=== PATIENT | male | born 1960 | race Caucasian/White ===

== ENCOUNTER → 2017-11-15 13:21 | Outpatient (POV) | payer BC, SELFPAY | PROVIDERS: Family Provider Internal Medicine; PCP Internal Medicine; Visit Provider Dermatology | DX: Z00.00 Encounter for general adult medical examination without abnormal findings (principal) ==

== ENCOUNTER → 2018-05-15 14:59 | Outpatient (CLI) | payer BC, SELFPAY ==
--- NOTE | 2018-05-15 15:04 | XR_ITS ---
XR chest 2V HISTORY: Congestion, fatigue, current smoker ITS.REASON: FATIGUE, CONGESTION ORDERING PHYSICIAN: Sulaiman Beach PATIENT AGE: 58 years COMPARISON: 10/19/2016 FINDINGS: Mild cardiomegaly without failure. There is calcified granuloma in the left lower lung zone. No lobar consolidation or collapse. There is some increased density in the left lung base suggestive of atelectatic/fibrotic change. The remaining lungs are clear. There are degenerative changes in the thoracic spine. IMPRESSION: Cardiomegaly with left lower lobe atelectatic/fibrotic change
== END ==
PROVIDERS: PCP Internal Medicine; Visit Provider Internal Medicine
DX: R09.89 Other specified symptoms and signs involving the circulatory and respiratory systems (principal); R53.83 Other fatigue
CPT/HCPCS: 71046

== ENCOUNTER → 2018-05-17 10:42 | Outpatient (CLI) | payer BC, SELFPAY ==
[2018-05-17 12:12] LABS: Anion Gap 16.2 mEq/L (5-15); Blood Urea Nitrogen 12 mg/dL (7-18); Calcium 8.5 mg/dL (8.5-10.1); Carbon Dioxide 27 mmol/L (21.0-32.0); Chloride 98 mmol/L (98-107); Creatinine,Serum 1.55 mg/dL (0.70-1.30); Estimated Glomerular Filt Rate 46 ml/min (>60); GFR (African American) 56 ML/MIN (>60); Glucose 161 mg/dL (74-106); Sodium 137 mmol/L (136-145)
[2018-05-17 12:15] LABS: Potassium 4.2 mmoL/L (3.5-5.1)
== END ==
PROVIDERS: Physician Assistant; Visit Provider Internal Medicine Cardiovascular Disease
DX: C92.10 Chronic myeloid leukemia, BCR/ABL-positive, not having achieved remission (principal); I31.3 Pericardial effusion (noninflammatory); R06.09 Other forms of dyspnea; R09.89 Other specified symptoms and signs involving the circulatory and respiratory systems; R60.9 Edema, unspecified; R06.00 Dyspnea, unspecified
CPT/HCPCS: 36415; 80048; 83880

== ENCOUNTER → 2018-05-21 13:33 | Outpatient (CLI) | payer BC, SELFPAY ==
--- NOTE | 2018-05-21 13:39 | CA_ITS ---
PROCEDURE: 2-D M-mode and color Doppler study INDICATIONS FOR THE TEST: Chest pain COPD+ Heart Murmur Tobacco Smoking+ Palpitations Fatigue Syncope Edema+ Hypertension+Diabetes Mellitus+ Rheumatic Fever SOB+KING+Obesity+Hyperlipidemia+ Family History HD Additional History Abn EKG, ANNIE, prior pericardial window 2016 PATIENT INFORMATION HEIGHT: 75 WEIGHT: 312 GENDER: Male B/P: 113/68 2-D/M-MODE INTERPRETATION: 2-D MEASUREMENTS OBSERVED VALUES IN CMS Right Ventricular Dimension (RVDd) 3.0 Interventricular Septum (Thickness)(IVsd) 1.0 Left Ventricular Internal Dimensions(LVIDd) 5.9 Left Ventricular Posterior Wall (Thickness)(LVPWd) 1.0 Aortic Root 3.3 Aortic Cusp Separation 2.2 Left Atrial Dimensions (LAD) 3.5 2D 1. Technically difficult study because of the patient's factor and poor acoustic windows 2. Left atrium is qualitatively moderately enlarged, left ventricle is mildly dilated, there is mild concentric left ventricular hypertrophy, visually estimated ejection fraction approximately 40-45%, there is moderate hypokinesis involving the posterolateral wall, a repeat study with definitely contrast is recommended. 3. The right atrium and right ventricle are moderately enlarged with normal contractility. 4. The aortic valve is minimally thickened and fibrosed. 5. The mitral and tricuspid valve leaflets are minimally thickened. 6. No significant pericardial effusion noted. DOPPLER INTERROGATION: Doppler interrogation of the aortic, mitral and tricuspid valvular presence of mild mitral and tricuspid regurgitation, tricuspid regurgitation jet velocity is inadequate for calculation of the right ventricular systolic pressure, grade 1 diastolic dysfunction seen with tissue Doppler evidence of raised left atrial pressure. CONCLUSION: 1. Technically difficult study because of the patient's factor and poor acoustic windows 2. Moderate biatrial enlargement, mildly dilated left ventricle, visually estimated ejection fraction of 40-45% with segmental wall motion abnormality described above, repeat study with Definity contrast is recommended for better delineation of the endocardial surfaces. Grade 1 diastolic dysfunction with tissue Doppler evidence of raised left atrial pressure. 3. Mild mitral and tricuspid regurgitation 4. No significant pericardial effusion noted.
--- NOTE | 2018-05-21 14:06 | CT_ITS ---
CT chest wo con HISTORY: Shortness of air, pleural effusion, pericardial effusion ITS.REASON: abnormal ekg, dyspnea ORDERING PHYSICIAN: Obed Bryan MD PATIENT AGE: 58 years COMPARISON: 10/02/2016 Technique: Axial images obtained without contrast. Sagittal, and coronal reformatted images are also generated and reviewed. All CT scans at the facility use one or more dose reduction, viz: automated exposure control, ma/kV adjustment per patient size (including targeted exams where dose is matched to indication, i.e. head), or iterative reconstruction technique. FINDINGS: There are few scattered small mediastinal nodes. Coronary artery calcifications are present. No mediastinal mass or hilar adenopathy is evident. There is mild thickening of the pericardium anteriorly and posteriorly. This has moderately improved compared to the previous exam. Small hiatal hernia is suspected. There are few small periportal lymph nodes in the upper abdomen. Calcified granuloma is present in the right upper lobe as before. There is a faint 5 mm nodule in the left lower lobe on axial image #55 not readily apparent on the previous study. Is nonspecific and too small to characterize. A calcified granuloma is present in the left lower lobe. There is an additional 5 mm nodular opacity in the left lower lobe on image #70.. Previously noted right pleural effusion has resolved No acute bony findings. IMPRESSION: 1. There is been interval improvement in the pericardial effusion. The previously noted right pleural effusion has resolved as well 2. There are 2 faint 5 mm nodules in the left lower lobe not previously identified. These are nonspecific. 6 month follow-up suggested. 3. Coronary artery calcifications
== END ==
PROVIDERS: PCP Internal Medicine; Visit Provider Internal Medicine Cardiovascular Disease
DX: R06.09 Other forms of dyspnea (principal); R09.89 Other specified symptoms and signs involving the circulatory and respiratory systems; R60.9 Edema, unspecified
CPT/HCPCS: 71250; 93306

== ENCOUNTER → 2018-09-13 07:58 | Outpatient (CLI) | payer BC, SELFPAY ==
--- NOTE | 2018-09-13 07:59 | CT_ITS ---
CT abdomen pelvis wo con CLINICAL INDICATION: ITS.REASON: GROSS HEMATURIA ORDERING PHYSICIAN: Sulaiman Beach PATIENT AGE: 58 years COMPARISON: 09/18/2016 TECHNIQUE: Axial images obtained with sagittal and coronal reformats. All CT scans at the facility use one or more dose reduction, viz: automated exposure control, ma/kV adjustment per patient size (including targeted exams where dose is matched to indication, i.e. head), or iterative reconstruction technique. FINDINGS: Lower thorax: There are mild atelectatic or fibrotic changes in the lingula. Minimal pericardial thickening noted. This has improved since the previous exam. Diffuse fatty liver. There is mild hepatomegaly. The anterior and lateral aspect of the mid abdomen including the most lateral aspect of the right hepatic lobe is cut off on the exam. There is mild dilatation of the celiac artery at 1.5 cm 2.6 cm distal to its origin. This is not significantly changed. The spleen, adrenal glands, and pancreas have an unremarkable unenhanced CT appearance. No renal or ureteral calculi. No hydronephrosis. There is a 13 mm isodensity in the left aspect of the kidney posteriorly and may represent a small cyst. Suspect small right parapelvic renal cysts. No intestinal obstruction or free air. Unremarkable appendix. Scattered colonic diverticula. No evidence of diverticulitis. There is a small periumbilical hernia containing fat. The prostate is enlarged at 6 x 5 cm. No pelvic mass abnormal fluid collection or focal inflammatory changes pelvis. There are degenerative changes in the lumbar spine. There is a well-circumscribed cystic area in the left femoral neck unchanged with a benign appearance. IMPRESSION: 1. No acute abdominal or pelvic findings. Nonacute findings are present as described above 2. Fatty liver with hepatomegaly. 3. No renal or ureteral calculi. 4. Enlarged prostate
== END ==
PROVIDERS: PCP Internal Medicine; Visit Provider Internal Medicine
DX: R31.0 Gross hematuria (principal)
CPT/HCPCS: 74176

== ENCOUNTER → 2020-01-27 10:14 | Outpatient (CLI) | payer BC, SELFPAY | PROVIDERS: PCP Internal Medicine; Visit Provider Internal Medicine | DX: Z03.818 Encounter for observation for suspected exposure to other biological agents ruled out (principal) | CPT/HCPCS: U0003 ==

== ENCOUNTER 2020-11-13 10:52 | Emergency (ER) | payer BC, SELFPAY ==
[2020-11-13 12:30] VITALS: BP 115/70; PULSE 64; RESP 19; TEMP 37; O2SAT 96; BMI 36.9
--- NOTE | 2020-11-13 12:57 | HMH.EDUTC ---
[facility] – [place] Disposition Clinical Impression: Exposure to COVID-19 virus Disposition: Home, Self-Care Condition on Discharge: Good Instructions: DI for COVID-19 (Suspected or Confirmed ), Preventing the Spread of Coronavirus Discharge Instructions Additional Instructions: *Monitor Temp, Over the counter Motrin or Tylenol as directed/as needed Tylenol every 4 hours and Motrin every 6 hours (as long as your family doctor has told you that you can take it) for fever or pain. and straight to ER if unable to lower temp less than 101.0 after medication given *Warm salt water gargles may help to soothe the throat *Throat Lozenges *Warm fluids like tea with honey may help to soothe the throat *Sleep elevated *Humidifier/Vaporizer Follow up IMMEDIATELY for new or worsening symptoms or no Noticeable improvement over the next 48-72 hours. 911 for difficulty breathing or swallowing You were tested for today for COVID19 your test result should be back in the next 24-48 hours, You was given written instructions for [facility] portal you can see your results there when they come back you may check it often to see if they are done You was given a handout with instructions for Self Quarantine and Self isolation for while you wait on test results and what to do if they are positive If you are positive the Health Dept will be contacting you also Make sure to take your Vitamins Vit. C Vit D and Zinc if you can take them Referrals: Sulaiman Beach [Primary Care Provider] - As needed Forms: Work/School Release Medical Decision Making - Adonis Inquiry Pt receiving controlled substance: No Adonis was queried for this patient: No Vital Signs: 11/13/20 12:30 Temperature 98.6 F Temperature Source Oral Pulse Rate [Right Brachial] 64 Respiratory Rate 19 Blood Pressure [Right Arm] 115/70 Blood Pressure Mean [Right Arm] 85 Blood Pressure Source [Right Arm] Automatic Cuff Blood Pressure Position [Right Arm] Sitting 02 Sat by Pulse Oximetry 96 Oxygen Delivery Method Room Air Orders (Tests/Meds): ORDERS Category Date Time Status Covid-19 Nasal PCR ([facility]) Routine Lab 11/13/20 12:40 Received [facility] – [place] HPI - General Stated complaint: covid test Time Seen by Provider: 11/13/20 12:57 Mode of Arrival: Ambulatory Source of Information: Patient Limitations: No Limitations Description of Symptoms (Recalled from Triage Doc. by RN): COVID TEST D/T EXPOSURE. PATIENT C/O COUGH, SOA, HEADACHE, AND LOSS OF TASTE AND SMELL X 3 DAYS HEENT Symptoms (Recalled from RN notes): Yes Resp Symptoms (Recalled from RN notes): No Skin Symptoms (Recalled from RN notes): No MS Symptoms (Recalled from RN notes): No Functional Status (Recalled from RN notes): WNL - History of Present Illness Provider Complaint: Patient states that he played golf with someone last week that recently tested positive for COVID States that he recently lost his sense of taste and smell, nasal congsestion and dry cough so he wanted to come in and get tested for COVID - Related Data Home Medications Medication Instructions Recorded Confirmed Metoprolol Succinate 50 mg PO DAILY 03/14/18 06/01/20 Montelukast Sodium [Singulair 10mg 10 mg PO PM 03/14/18 06/01/20 tablet] metformin 1,000 mg tablet 1,000 mg PO BID tab 06/14/18 06/01/20 imatinib 400 mg tablet 400 mg PO DAILY 07/05/18 06/01/20 pravastatin 80 mg tablet 80 mg PO DAILY #90 tab 07/05/18 06/01/20 levocetirizine 5 mg tablet 5 mg PO DAILY 09/20/18 06/01/20 sodium bicarbonate 325 mg tablet 325 mg PO BID tab 09/20/18 06/01/20 tamsulosin 0.4 mg capsule 0.4 mg PO DAILY 09/20/18 06/01/20 allopurinol 100 mg tablet 300 mg PO BID tab 09/19/19 06/01/20 fluticasone 500 mcg-salmeterol 50 1 inh INHALATION BID each 09/17/20 09/17/20 mcg/dose blistr powdr for inhalation ipratropium 20 mcg-albuterol 100 1 puff INHALATION Q6H PRN g 09/17/20 09/17/20 mcg/actuation mist for inhalation Previous Rx's Medication Instructions Record
[2020-11-13 13:02] VITALS: BP 115/70; PULSE 64; RESP 19; TEMP 37; O2SAT 96
== END 2020-11-13 13:05 | disposition home or self-care (01) ==
PROVIDERS: Emergency Provider Nurse Practitioner; PCP Internal Medicine
DX: R43.9 Unspecified disturbances of smell and taste (principal); R05 Cough; R06.02 Shortness of breath; R51.9 Headache, unspecified; Z20.822 Contact with and (suspected) exposure to COVID-19
CPT/HCPCS: 99202; G0463; U0003

== ENCOUNTER 2020-11-15 10:23 | Outpatient (CLI) | payer BC, SELFPAY ==
[2020-11-15 11:00] VITALS: BP 175/89; PULSE 51; RESP 20; TEMP 36.6; O2SAT 98
[2020-11-15 11:15] VITALS: BP 139/70; PULSE 49; RESP 16; O2SAT 95
[2020-11-15 11:30] VITALS: BP 149/78; PULSE 51; RESP 17; O2SAT 96
[2020-11-15 11:46] VITALS: BP 140/67; PULSE 50; RESP 18; O2SAT 95
[2020-11-15 12:01] VITALS: BP 133/65; PULSE 50; RESP 16; O2SAT 95
[2020-11-15 12:16] VITALS: BP 139/66; PULSE 49; RESP 18; O2SAT 95
== END 2020-11-15 12:30 | disposition home or self-care (01) ==
PROVIDERS: PCP Internal Medicine; Visit Provider Family Medicine
DX: U07.1 COVID-19 (principal)
CPT/HCPCS: 96365

== ENCOUNTER → 2021-01-21 14:09 | Outpatient (CLI) | payer BC, SELFPAY ==
[2021-01-21 14:43] LABS: Alanine Aminotransferase 27 U/L (12-78); Albumin Level 4.2 g/dl (3.5-5.0); Albumin/Globulin Ratio 1.2 (1.1-1.8); Alkaline Phosphatase 111 U/L (38-126); Aspartate Amino Transferase 32 U/L (17-59); Bilirubin,Total 0.6 mg/dl (0.2-1.3); Blood Urea Nitrogen 9 mg/dl (9-20); Calcium 9.7 mg/dl (8.4-10.2); Chloride 102 mmol/L (98-107); Chol/HDL Ratio 9.5 (1-3.5); Cholesterol 248 mg/dl (140-200); Estimated Glomerular Filt Rate 98 ml/min (>60); GFR (African American) 119 ML/MIN (>60); Globulin 3.4 g/dL (1.3-3.2); Glucose 126 mg/dl (74-100); HDL Cholesterol 26 mg/dl (40-60); Potassium 4.5 mmoL/L (3.5-5.1); Sodium 139 mmol/L (136-145); Total Protein,Serum 7.6 g/dl (6.3-8.2); Triglycerides 382 mg/dl (30-150); VLDL Cholesterol 76 mg/dL (0-40)
[2021-01-21 14:55] LABS: Direct LDL Cholesterol 132.27 mg/dL (100-129)
[2021-01-21 15:06] LABS: Basophils # 0.1 K/mm3 (0-0.2); Basophils % 1.1 % (0.1-2.0); Eosinophils # 0.2 K/mm3 (0.0-0.4); Eosinophils % 1.9 % (0.1-12.0); Hematocrit 37.8 % (42.0-52.0); Hemoglobin 12.4 g/dL (14.1-18.0); Lymphocytes % 38.2 % (10-50); Mean Corpuscular HGB Conc 32.7 g/dL (31.8-35.4); Mean Corpuscular Volume 94.9 fl (80-94); Mean Platelet Volume 10.6 fl (7.4-10.4); Monocytes # 0.4 K/mm3 (0.1-1.0); Monocytes % 5.3 % (1.7-9.3); Neutrophils # 4.2 K/mm3 (1.8-7.8); Neutrophils % 53.4 % (37.0-80.0); Platelet Count 200 K/mm3 (142-424); Red Blood Count 3.99 M/mm3 (4.60-6.20); Red Cell Distribution Width 15.3 % (11.5-17.5); White Blood Count 7.9 K/mm3 (4.8-10.8)
[2021-01-21 15:14] LABS: Prostate Specific Ag Screen 9.8 ng/ml (0.0-4.0)
[2021-01-21 16:15] LABS: Anion Gap 13.5 mEq/L (5-15); Carbon Dioxide 28 mmol/L (22.0-30.0)
[2021-01-21 16:57] LABS: Hemoglobin A1C 6.8 % (4.0-6.0)
== END ==
PROVIDERS: Visit Provider Internal Medicine
DX: E11.9 Type 2 diabetes mellitus without complications (principal); I10 Essential (primary) hypertension; E78.5 Hyperlipidemia, unspecified; J44.9 Chronic obstructive pulmonary disease, unspecified; C92.10 Chronic myeloid leukemia, BCR/ABL-positive, not having achieved remission
CPT/HCPCS: 80053; 80061; 83036; 85025; G0103

== ENCOUNTER → 2021-02-15 11:15 | Outpatient (POV) | payer BC, SELFPAY | PROVIDERS: Visit Provider Dermatology | DX: Z00.00 Encounter for general adult medical examination without abnormal findings (principal) ==

== ENCOUNTER → 2021-03-22 15:12 | Outpatient (CLI) | payer BC, SELFPAY | PROVIDERS: PCP Internal Medicine; Visit Provider Nurse Practitioner | DX: Z20.822 Contact with and (suspected) exposure to COVID-19 (principal) | CPT/HCPCS: C9803; U0003; U0005 ==

== ENCOUNTER → 2021-07-26 14:55 | Outpatient (CLI) | payer BC, SELFPAY ==
[2021-07-26 15:18] LABS: Basophils # 0.1 K/mm3 (0-0.2); Basophils % 1.1 % (0.1-2.0); Eosinophils # 0.2 K/mm3 (0.0-0.4); Eosinophils % 1.5 % (0.1-12.0); Hematocrit 38.6 % (42.0-52.0); Hemoglobin 12.6 g/dL (14.1-18.0); Lymphocytes # 2.7 K/mm3 (0.7-4.5); Lymphocytes % 27.6 % (10-50); Mean Corpuscular HGB Conc 32.7 g/dL (31.8-35.4); Mean Corpuscular Hemoglobin 31.3 pg (27.0-31.2); Mean Corpuscular Volume 95.7 fl (80-94); Mean Platelet Volume 10.7 fl (7.4-10.4); Monocytes # 0.4 K/mm3 (0.1-1.0); Monocytes % 4.3 % (1.7-9.3); Neutrophils # 6.4 K/mm3 (1.8-7.8); Neutrophils % 65.4 % (37.0-80.0); Platelet Count 206 K/mm3 (142-424); Red Blood Count 4.04 M/mm3 (4.60-6.20); Red Cell Distribution Width 15.1 % (11.5-17.5); White Blood Count 9.8 K/mm3 (4.8-10.8)
[2021-07-26 15:42] LABS: Chloride 103 mmol/L (98-107); Sodium 140 mmol/L (136-145)
[2021-07-26 15:43] LABS: Potassium 4.9 mmoL/L (3.5-5.1)
[2021-07-26 15:45] LABS: Alanine Aminotransferase 23 U/L (12-78); Albumin Level 4.1 g/dl (3.5-5.0); Albumin/Globulin Ratio 1.2 (1.1-1.8); Alkaline Phosphatase 136 U/L (38-126); Anion Gap 13.9 mEq/L (5-15); Aspartate Amino Transferase 28 U/L (17-59); Bilirubin,Total 0.5 mg/dl (0.2-1.3); Blood Urea Nitrogen 12 mg/dl (9-20); Carbon Dioxide 28 mmol/L (22.0-30.0); Estimated Glomerular Filt Rate 61 ml/min (>60); GFR (African American) 74 ML/MIN (>60); Globulin 3.4 g/dL (1.3-3.2); Total Protein,Serum 7.5 g/dl (6.3-8.2)
[2021-07-26 15:46] LABS: Calcium 9.1 mg/dl (8.4-10.2); Chol/HDL Ratio 6.7 (1-3.5); Cholesterol 160 mg/dl (140-200); Glucose 129 mg/dl (74-100); HDL Cholesterol 24 mg/dl (40-60); Triglycerides 222 mg/dl (30-150); VLDL Cholesterol 44 mg/dL (0-40)
[2021-07-26 16:56] LABS: Hemoglobin A1C 7.5 % (4.0-6.0)
[2021-07-26 18:07] LABS: Microalbumin/Creatinine Ratio 65.9
[2021-07-26 18:18] LABS: Creatinine,Urine Random 179 mg/dL (Not Estab.)
== END ==
PROVIDERS: PCP Internal Medicine; Visit Provider Internal Medicine
DX: E11.9 Type 2 diabetes mellitus without complications (principal); E78.5 Hyperlipidemia, unspecified; Z79.84 Long term (current) use of oral hypoglycemic drugs
CPT/HCPCS: 80053; 80061; 82043; 82570; 83036; 85025

== ENCOUNTER → 2021-10-04 08:05 | Outpatient (POV) | payer BC, SELFPAY | PROVIDERS: Visit Provider Dermatology | DX: Z00.00 Encounter for general adult medical examination without abnormal findings (principal) ==

== ENCOUNTER → 2022-01-27 13:33 | Outpatient (CLI) | payer BC, SELFPAY ==
[2022-01-27 14:43] LABS: Basophils # 0.1 K/mm3 (0-0.2); Basophils % 0.6 % (0.1-2.0); Eosinophils # 0.1 K/mm3 (0.0-0.4); Eosinophils % 1.6 % (0.1-12.0); Hematocrit 38.1 % (42.0-52.0); Hemoglobin 12.2 g/dL (14.1-18.0); Lymphocytes # 2.4 K/mm3 (0.7-4.5); Lymphocytes % 28.2 % (10-50); Mean Corpuscular HGB Conc 32.2 g/dL (31.8-35.4); Mean Corpuscular Volume 93.4 fl (80-94); Mean Platelet Volume 11.6 fl (7.4-10.4); Monocytes # 0.4 K/mm3 (0.1-1.0); Neutrophils # 5.5 K/mm3 (1.8-7.8); Neutrophils % 64.6 % (37.0-80.0); Platelet Count 173 K/mm3 (142-424); Red Blood Count 4.07 M/mm3 (4.60-6.20); Red Cell Distribution Width 14.9 % (11.5-17.5); White Blood Count 8.5 K/mm3 (4.8-10.8)
[2022-01-27 15:16] LABS: Hemoglobin A1C 6.3 % (4.0-6.0)
[2022-01-27 15:54] LABS: Alanine Aminotransferase 21 U/L (12-78); Albumin Level 4.4 g/dl (3.5-5.0); Albumin/Globulin Ratio 1.4 (1.1-1.8); Alkaline Phosphatase 140 U/L (38-126); Anion Gap 20.5 mEq/L (5-15); Aspartate Amino Transferase 23 U/L (17-59); Bilirubin,Total 0.8 mg/dl (0.2-1.3); Blood Urea Nitrogen 17 mg/dl (9-20); Calcium 9.2 mg/dl (8.4-10.2); Carbon Dioxide 26 mmol/L (22.0-30.0); Chloride 99 mmol/L (98-107); Chol/HDL Ratio 3.6 (1-3.5); Cholesterol 109 mg/dl (140-200); Estimated Glomerular Filt Rate 51 ml/min (>60); GFR (African American) 62 ML/MIN (>60); Globulin 3.2 g/dL (1.3-3.2); Glucose 201 mg/dl (74-100); HDL Cholesterol 30 mg/dl (40-60); Potassium 4.5 mmoL/L (3.5-5.1); Sodium 141 mmol/L (136-145); Total Protein,Serum 7.6 g/dl (6.3-8.2); Triglycerides 157 mg/dl (30-150); VLDL Cholesterol 31 mg/dL (0-40)
[2022-01-27 16:25] LABS: Prostate Specific Ag Screen 9.7 ng/ml (0.0-4.0)
[2022-01-27 17:50] LABS: Direct LDL Cholesterol 50.15 mg/dL (100-129)
== END ==
PROVIDERS: PCP Internal Medicine; Visit Provider Internal Medicine
DX: I10 Essential (primary) hypertension (principal); E11.9 Type 2 diabetes mellitus without complications; E78.5 Hyperlipidemia, unspecified; Z79.84 Long term (current) use of oral hypoglycemic drugs; Z12.5 Encounter for screening for malignant neoplasm of prostate
CPT/HCPCS: 80053; 80061; 83036; 85025; G0103

== ENCOUNTER 2022-04-04 23:27 | Emergency (ER) | payer BC, SELFPAY ==
[2022-04-04 23:29] VITALS: BP 174/96; PULSE 85; RESP 25; TEMP 36.9; O2SAT 95; BMI 35.6
--- NOTE | 2022-04-04 23:38 | ECG_ITS ---
APPROVED REPORT Exam: Resting ECG HR:83 bpm ECG Measurements Heart Rate 83 AXES QRSd 157 QRS 70 QT 460 T 60 QTc 500 Conclusion NSR with first degree AV block RIGHT BUNDLE BRANCH BLOCK Poor r wave progression ABNORMAL ECG INTERPRETATION BASED ON A DEFAULT AGE OF 40 YEARS UNCONFIRMED REPORT Electronically signed by : Heraclio Hess MD 04/05/2022 17:39:07
[2022-04-04 23:51] VITALS: BMI 35.6
--- NOTE | 2022-04-04 23:57 | PC.NURSE ---
respiratory in room
[2022-04-05] VITALS (8 sets, daily range): BP systolic 156–182; BP diastolic 87–107; PULSE 60–91; RESP 13–20; TEMP 36.7; O2SAT 95–97
--- NOTE | 2022-04-05 | XR_ITS ---
PROCEDURE INFORMATION: Exam: XR Chest Exam date and time: 04/05/2022 12:20 AM Age: 61 years old Clinical indication: Dyspnea and shortness of breath; Patient HX: Copd, covid +, former smoker; Additional info: SOA, dyspnea TECHNIQUE: Imaging protocol: Radiologic exam of the chest. Views: 1 view. COMPARISON: 1. CHESTWO CT chest wo con 05/21/2018 2:13 PM 2. DX CXR2V XR chest 2V 05/15/2018 3:17 PM FINDINGS: Lungs: Minimal right atelectasis or infiltrates. Chronic scarring left lung base unchanged. Pleural spaces: Unremarkable. No pleural effusion. No pneumothorax. Heart/Mediastinum: Stable heart size. Bones/joints: Stable bones. IMPRESSION: Minimal right bibasilar atelectasis or infiltrate. Correlate for pulmonary infection.
--- NOTE | 2022-04-05 | CT_ITS ---
PROCEDURE INFORMATION: Exam: CTA Chest With Contrast Exam date and time: 04/05/2022 12:49 AM Age: 61 years old Clinical indication: Dyspnea and shortness of breath; Patient HX: Copd, former smoker; Additional info: Covid +, SOA, dyspnea TECHNIQUE: Imaging protocol: Computed tomographic angiography of the chest with contrast. 3D rendering (Not supervised by radiologist): MIP and/or 3D reconstructed images were created by the technologist. Radiation optimization: All CT scans at this facility use at least one of these dose optimization techniques: automated exposure control; mA and/or kV adjustment per patient size (includes targeted exams where dose is matched to clinical indication); or iterative reconstruction. Contrast material: ISOVUE; Contrast volume: 70 ml; Contrast route: INTRAVENOUS (IV); Other protocol: This patient has received 0 known CTs and 0 known cardiac nuclear medicine studies in the 12 months prior to the current study. COMPARISON: CR XR CHEST PORTABLE 04/05/2022 12:20 AM FINDINGS: Pulmonary arteries: Normal. No pulmonary emboli. Aorta: Unremarkable. No aortic aneurysm. No aortic dissection. 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 Common hepatic artery also appears to have high-grade narrowing proximally. Lungs: Ground-glass/nodular infiltrates are seen bilaterally in the lower lobes. The lower lobe bronchi are thickened with distal right lower lobe bronchial mucoid impaction. Unchanged left lower lobe calcified granuloma. Previously noted small left lower lobe nodule is obscured. Unchanged small right upper lobe calcified granuloma. Pleural spaces: Moderate right and trace left pleural effusions. Heart: Cardiomegaly with moderate-sized pericardial effusion which is increased. Lymph nodes: Mildly prominent mediastinal lymph nodes are unchanged and may be reactive. Calcified nodes left hilum unchanged. Bones/joints: Unremarkable. No acute fracture. Soft tissues: Unremarkable. IMPRESSION: 1. No pulmonary embolus. 2. Moderate right and trace left pleural effusions. Infiltrates are seen in the lower lobes with distal bronchial mucoid impaction, suspicious for aspiration pneumonia, more likely than other causes of pneumonia. Recommend clinical correlation. 3. Moderate pericardial effusion is increased. 4. 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 This can be further evaluated with CTA of the abdomen.
[2022-04-05 00:01] LABS: Influenza A, PCR Not Detected (NotDetected); Influenza B, PCR Not Detected (NotDetected)
[2022-04-05 00:04] LABS: ABG Base Excess 3.2 mmol/L (-2.4-2.3); ABG HCO3 27.1 mmhg (22.0-26.0); ABG Oxygen Saturation 96 % (90-100); ABG PCO2 39.4 mmhg (35.0-45.0); ABG PH 7.46 mmol/L (7.35-7.45); ABG PO2 74.3 mmhg (80-100); ABG TCO2 28.3 mmhg (23-27)
[2022-04-05 00:07] LABS: Allen's Test Acceptable; Oxygen ROOM AIR %; Source Right Radial
[2022-04-05 00:11] LABS: Chloride 105 mmol/L (98-107); Potassium 4.1 mmoL/L (3.5-5.1); Sodium 142 mmol/L (136-145)
[2022-04-05 00:12] LABS: Basophils # 0.1 K/mm3 (0-0.2); Basophils % 0.7 % (0.1-2.0); Eosinophils # 0.2 K/mm3 (0.0-0.4); Eosinophils % 1.5 % (0.1-12.0); Hematocrit 38.7 % (42.0-52.0); Hemoglobin 12.8 g/dL (14.1-18.0); Lymphocytes # 3.2 K/mm3 (0.7-4.5); Lymphocytes % 27.4 % (10-50); Mean Corpuscular HGB Conc 33.2 g/dL (31.8-35.4); Mean Corpuscular Hemoglobin 29.2 pg (27.0-31.2); Mean Corpuscular Volume 87.9 fl (80-94); Mean Platelet Volume 9.2 fl (7.4-10.4); Monocytes # 0.4 K/mm3 (0.1-1.0); Monocytes % 3.6 % (1.7-9.3); Neutrophils # 7.8 K/mm3 (1.8-7.8); Neutrophils % 66.7 % (37.0-80.0); Platelet Count 188 K/mm3 (142-424); Red Cell Distribution Width 15.1 % (11.5-17.5); White Blood Count 11.7 K/mm3 (4.8-10.8)
[2022-04-05 00:14] LABS: Alanine Aminotransferase 21 U/L (12-78); Albumin Level 4.7 g/dl (3.5-5.0); Albumin/Globulin Ratio 1.1 (1.1-1.8); Alkaline Phosphatase 139 U/L (38-126); Anion Gap 13.1 mEq/L (5-15); Aspartate Amino Transferase 25 U/L (17-59); Bilirubin,Total 0.8 mg/dl (0.2-1.3); Blood Urea Nitrogen 16 mg/dl (9-20); Calcium 8.8 mg/dl (8.4-10.2); Carbon Dioxide 28 mmol/L (22.0-30.0); Creatinine Clearance Estimated 115 mL/min (50-200); Estimated Glomerular Filt Rate 61 ml/min (>60); GFR (African American) 74 ML/MIN (>60); Globulin 4.4 g/dL (1.3-3.2); Glucose 131 mg/dl (74-100); Total Protein,Serum 9.1 g/dl (6.3-8.2)
[2022-04-05 00:15] LABS: Magnesium 1.8 mg/dl (1.6-2.3)
[2022-04-05 00:19] LABS: C-Reactive Protein 6.8 mg/L (0-4)
[2022-04-05 00:25] LABS: NT Pro Brain Natriuretic Pep. 1730 pg/mL (0-125)
[2022-04-05 00:27] LABS: Troponin I 0.02 ng/ml (0.00-0.034)
--- NOTE | 2022-04-05 00:28 | HMH.EDSOB ---
Discharge Plan Disposition Patient Disposition: Home, Self-Care Chief Complaint: Shortness of Breath/Dyspnea Prescriptions Prescriptions: No Action sodium bicarbonate 325 mg tablet 325 mg PO BID tamsulosin [Flomax] 0.4 mg capsule 0.4 mg PO HS levocetirizine [Xyzal] 5 mg tablet 5 mg PO HS fluticasone propion-salmeterol [Advair Diskus] 500-50 mcg/dose blister with device 1 inh INHALATION BID Combivent Respimat 20-100 mcg/actuation mist 1 puff INHALATION Q6H PRN (Reason: copd) metformin 1,000 mg tablet 1,000 mg PO BID furosemide [Lasix] 20 mg tablet 20 mg PO DAILY PRN (Reason: fluid) Bosulif 400 mg tablet 400 mg PO HS metoprolol succinate 50 MG tablet extended release 24 hr 50 mg PO DAILY montelukast 10 MG tablet 10 mg PO HS allopurinol 300 mg tablet 300 mg PO BID losartan 100 mg tablet 100 mg PO HS rosuvastatin 40 mg tablet 40 mg PO HS Referrals Follow up/Referrals: Sulaiman Beach MD [Primary Care Provider] - See instructions Rashad Benjamin MD [Staff Physician] - See instructions Clinical Impressions Clinical Impression: COVID-19, Congestive heart failure, Right bundle branch block (RBBB) determined by electrocardiography, Acute pericardial effusion Instructions Patient Instructions: DI for Shortness of Breath, DI for COVID-19 (Suspected or Confirmed ) Discharge ED Provider: Peng Song Resp/SOB HPI General Chief Complaint: Shortness of Breath/Dyspnea Stated Complaint: Covid + 04/03/22,Difficulty breathing Time Seen by Provider: 04/05/22 00:28 Mode of Arrival: Family Vehicle Source of Information: Patient Limitations: No Limitations Description of Symptoms (Recalled from ER Triage Doc. by RN): Pt c/o SOA & dyspnea that began today and progressively has worsened. States he tested positive for covid with a home test yesterday & today. He also reports a dry cough. Denies any blood thinner or blood clot hx. History of Present Illness sob and cough over the last few days with home pos covid-19- no chest pain - Complaint: shortness of breath and cough Onset (ago): day(s) Severity: moderate Consistency/Duration: intermittent Known history of: congestive heart failure Associated symptoms: cough and wheezing Related Data Home oxygen amount: none Home Medications Medication Instructions Recorded Confirmed metoprolol succinate 50 mg 50 mg PO DAILY High blood pressure 03/14/18 04/05/22 tablet,extended release 24 hr montelukast 10 mg tablet 10 mg PO HS Asthma 03/14/18 04/05/22 metformin 1,000 mg tablet 1,000 mg PO BID Diabetes 06/14/18 04/05/22 levocetirizine 5 mg tablet (Xyzal) 5 mg PO HS Allergy symptoms 09/20/18 04/05/22 sodium bicarbonate 325 mg tablet 325 mg PO BID Kidney stones 09/20/18 04/05/22 tamsulosin 0.4 mg capsule (Flomax) 0.4 mg PO HS Kidney stones 09/20/18 04/05/22 fluticasone 500 mcg-salmeterol 50 1 inh inhalation BID COPD 09/17/20 04/05/22 mcg/dose blistr powdr for inhalation (Advair Diskus) ipratropium 20 mcg-albuterol 100 1 puff inhalation Q6H PRN copd 09/17/20 04/05/22 mcg/actuation mist for inhalation (Combivent Respimat) bosutinib 400 mg tablet (Bosulif) 400 mg PO HS CLL 03/25/21 04/05/22 furosemide 20 mg tablet (Lasix) 20 mg PO DAILY PRN fluid 03/25/21 04/05/22 allopurinol 300 mg tablet 300 mg PO BID Kidney stones 04/05/22 04/05/22 losartan 100 mg tablet 100 mg PO HS High blood pressure 04/05/22 04/05/22 rosuvastatin 40 mg tablet 40 mg PO HS High cholesterol 04/05/22 04/05/22 Allergies Allergy/AdvReac Type Severity Reaction Status Date / Time ADRIENNE Inhibitors Allergy Severe ANGIOEDEMA Verified 06/02/21 09:37 Sulfa (Sulfonamide Allergy Verified 06/02/21 09:37 Antibiotics) Well's Criteria PE Score Clinical signs/symptoms of DVT: No PE is #1 diagnosis or equally likely: Yes Heart rate is > 100: No Immobile at least 3 days, or surgery in past 4 wks: No Previously, obj. diag
--- NOTE | 2022-04-05 00:32 | PC.NURSE ---
ER speaking with pt at this time
[2022-04-05 00:35] LABS: Coronavirus 19, PCR Detected (NotDetected)
[2022-04-05 00:36] LABS: Erythrocyte Sedimentation Rate 64 mm/hr (0-20)
--- NOTE | 2022-04-05 00:43 | PC.NURSE ---
pt going to scan at this time
--- NOTE | 2022-04-05 00:53 | PC.NURSE ---
pt back in room
[2022-04-05 01:53] LABS: Procalcitonin 0.047 ng/mL (0.0-2.0)
== END 2022-04-05 02:58 | disposition home or self-care (01) ==
PROVIDERS: Emergency Provider Emergency Medicine; PCP Internal Medicine
DX: U07.1 COVID-19 (principal); I50.9 Heart failure, unspecified; I45.10 Unspecified right bundle-branch block; I31.39 Other pericardial effusion (noninflammatory); I25.10 Atherosclerotic heart disease of native coronary artery without angina pectoris; I11.0 Hypertensive heart disease with heart failure; Z87.891 Personal history of nicotine dependence; Z20.822 Contact with and (suspected) exposure to COVID-19
CPT/HCPCS: 71045; 71275; 80053; 82803; 83605; 83735; 83880; 84145; 84484; 85025; 85651; 86140; 93005; 96361; 96374; 99285; C9803; Q9967; U0003; U0005

== ENCOUNTER → 2022-04-05 11:26 | Outpatient (CLI) | payer BC, SELFPAY ==
--- NOTE | 2022-04-05 11:30 | CA_ITS ---
APPROVED REPORT EXAM: Comprehensive 2D, Doppler, and color-flow Echocardiogram Isobutylene Operator Chief: Ngoc Brock RVT Ht: 5 ft 3 in Wt: 381lbs BSA: 2.54 BP: 170/90 mmHg Indications: COVID +,SOA,PRIOR PERICARDIAL WINDOW 2017,ABN EKG,ANNIE,EF OF 40-45% ON 05/2018 2D Dimensions LVOT 2.77 cm (M/F) 1.5-2.5 LA Volume 62.10 mL LA Volume Index 24.35 mL/m2 (M/F) 16-34 M-Mode Dimensions RVDd 3.93 cm (0.9-2.6) LA Diam 4.13 cm (1.9-4.0) LVDd 6.68 cm (3.5-5.7) Ao Diam 4.20 cm (2.0-3.7) LVDs 5.22 cm (3.5-5.7) IVSd 1.67 cm (0.6-1.1) PWd 0.93 cm (0.6-1.1) EF (Teich) 43.10% FS 21.90% EDV (Teich) 229.80 mL TAPSE 2.45 (<1.7) ESV (Teich) 130.70 mL LV Diastology E Decel Time 300.00 (160-240 msec) E/A Ratio 1.5 MED E' 4.90 (< 7 cm/sec) E'/MED E' Ratio 23.61 (>14) LAT E' 6.30 (<10 cm/sec) E/LAT E' Ratio 18.37 (>14) Aortic Valve AO Peak GR. 9.80 mmHg Mitral Valve MV E Max Tod. 116.00 (40-130 cm/s) MV A Velocity 76.00 (40-130 cm/s) E/A Ratio 1.51 MV Decel. Time 300.00 (160-240 ms) MV PHT 88.00 ms Pulmonary Valve PV Peak Velocity 78.00 (50-150 cm/s) Tricuspid Valve TR P. Velocity 289.00 cm/s RAP Estimate 10.00 mmHg RVSP 43.30 mmHg Left Ventricle Left atrium is mildly enlarged, left ventricle is mildly dilated, estimated ejection fraction 50% with no regional wall motion abnormality, diastolic parameters are inconclusive in the study. Right Ventricle Right atrium and right ventricle are mildly enlarged with normal contractility. Aortic Valve Aortic valve is minimally thickened and calcified without aortic stenosis or aortic insufficiency. Mitral Valve Mitral valve grossly normal, there is mild mitral regurgitation. Tricuspid Valve Tricuspid valve grossly normal, there is mild tricuspid regurgitation calculated right ventricular systolic pressure is 42 mmHg. Pulmonic Valve Pulmonic valve is poorly visualized. Great Vessels Aortic root is normal size. Inferior vena cava is normal size with normal inspiratory collapse. Pericardium No significant pericardial effusion noted. Conclusion 1. Mild biatrial enlargement, mildly dilated left ventricle, estimated ejection fraction 50% with no regional wall motion abnormality, diastolic parameters are inconclusive in the study. 2. Mildly enlarged right ventricle with normal contractility. 3. Mild mitral and tricuspid regurgitation, calculated right ventricular systolic pressure is 42 mmHg. 4. No significant pericardial effusion noted. 5. Inferior vena cava is normal size with normal inspiratory collapse. Electronically signed by : Obed Bryan MD 04/06/2022 06:02:02
== END ==
LOC: RT 11:26
PROVIDERS: PCP Internal Medicine; Visit Provider Internal Medicine
DX: I50.9 Heart failure, unspecified (principal)
CPT/HCPCS: 93306

== ENCOUNTER → 2022-04-26 14:45 | Outpatient (CLI) | payer BC, SELFPAY | PROVIDERS: PCP Internal Medicine; Visit Provider Urology | DX: R97.20 Elevated prostate specific antigen [PSA] (principal) ==

== ENCOUNTER → 2022-05-03 10:28 | Outpatient (CLI) | payer BC, SELFPAY ==
[2022-05-03 11:35] LABS: Blood Urea Nitrogen 15 mg/dl (9-20); Estimated Glomerular Filt Rate 61 ml/min (>60); GFR (African American) 74 ML/MIN (>60)
== END ==
PROVIDERS: PCP Internal Medicine; Visit Provider Urology
DX: R97.20 Elevated prostate specific antigen [PSA] (principal)
CPT/HCPCS: 36415; 82565; 84520

== ENCOUNTER → 2022-07-25 09:40 | Outpatient (CLI) | payer BC, SELFPAY ==
[2022-07-25 10:06] LABS: Basophils # 0.1 K/mm3 (0-0.2); Basophils % 0.6 % (0.1-2.0); Eosinophils # 0.2 K/mm3 (0.0-0.4); Eosinophils % 2.3 % (0.1-12.0); Hematocrit 36.9 % (42.0-52.0); Hemoglobin 12.1 g/dL (14.1-18.0); Lymphocytes # 3.3 K/mm3 (0.7-4.5); Lymphocytes % 30.9 % (10-50); Mean Corpuscular HGB Conc 32.8 g/dL (31.8-35.4); Mean Corpuscular Hemoglobin 29.5 pg (27.0-31.2); Mean Corpuscular Volume 89.7 fl (80-94); Mean Platelet Volume 9.4 fl (7.4-10.4); Monocytes # 0.5 K/mm3 (0.1-1.0); Monocytes % 4.9 % (1.7-9.3); Neutrophils # 6.5 K/mm3 (1.8-7.8); Neutrophils % 61.4 % (37.0-80.0); Platelet Count 185 K/mm3 (142-424); Red Blood Count 4.12 M/mm3 (4.60-6.20); Red Cell Distribution Width 15.9 % (11.5-17.5); White Blood Count 10.5 K/mm3 (4.8-10.8)
[2022-07-25 10:41] LABS: Creatinine,Urine Random 153 mg/dL (Not Estab.)
[2022-07-25 10:42] LABS: Microalbumin/Creatinine Ratio 57.7
[2022-07-25 11:08] LABS: Alanine Aminotransferase 23 U/L (12-78); Albumin Level 4.5 g/dl (3.5-5.0); Albumin/Globulin Ratio 1.3 (1.1-1.8); Alkaline Phosphatase 114 U/L (38-126); Anion Gap 17.8 mEq/L (5-15); Aspartate Amino Transferase 26 U/L (17-59); Blood Urea Nitrogen 13 mg/dl (9-20); Calcium 8.8 mg/dl (8.4-10.2); Carbon Dioxide 29 mmol/L (22.0-30.0); Chloride 100 mmol/L (98-107); Chol/HDL Ratio 3.3 (1-3.5); Cholesterol 101 mg/dl (140-200); Estimated Glomerular Filt Rate 56 ml/min (>60); GFR (African American) 67 ML/MIN (>60); Globulin 3.5 g/dL (1.3-3.2); Glucose 132 mg/dl (74-100); HDL Cholesterol 31 mg/dl (40-60); Potassium 4.8 mmoL/L (3.5-5.1); Sodium 142 mmol/L (136-145); Triglycerides 190 mg/dl (30-150); VLDL Cholesterol 38 mg/dL (0-40)
[2022-07-25 11:18] LABS: Direct LDL Cholesterol 48.35 mg/dL (100-129)
[2022-07-25 11:19] LABS: Hemoglobin A1C 6.3 % (4.0-6.0)
== END ==
PROVIDERS: PCP Internal Medicine; Visit Provider Internal Medicine
DX: I25.10 Atherosclerotic heart disease of native coronary artery without angina pectoris (principal); E11.59 Type 2 diabetes mellitus with other circulatory complications; I10 Essential (primary) hypertension; C92.10 Chronic myeloid leukemia, BCR/ABL-positive, not having achieved remission; Z79.84 Long term (current) use of oral hypoglycemic drugs
CPT/HCPCS: 36415; 80053; 80061; 82043; 82570; 83036; 85025

== ENCOUNTER 2023-10-12 15:26 | Outpatient (CLI) | payer MEDICARE, SELFPAY ==
--- OUTSIDE RECORDS SUMMARY | 2023-10-12 15:31 | XMS_ITS | Clinical Summary ---
Author Organization [facility] Address [address] [place] [address] Phone Care Team Providers Care Pmo Manager Name Role Phone Javi VELASQUEZ, Toby Elliott [ ] Conditions or Problems Problem Name Problem Code Onset Date Status Entry Date Provider Comment Standard Description Annotate TOBACCO ABUSE 05541532 (SNOMED CT) 11/20 Active 11/20 Toby Caldwell MD Tobacco dependence syndrome PYELONEPHRIT IS 87976249 (SNOMED CT) 11/19 Active 11/19 Keren Ralph Pyelonephritis MSSA BACTEREMIA R78.81 (ICD-10-CM ) 11/19 Active 11/19 Keren Ralph Bacteremia MSSA INFECTION 544313269 (SNOMED CT) 11/19 Active 11/19 Keren Ralph Infection by methicillin sensitive Staphylococcus aureus STREP GROUP D ENTEROCOCCUS INFECTION B95.4 (ICD-10-CM ) 11/19 Active 11/19 Keren Ralph Other streptococcus as the cause of diseases classified elsewhere MSSA/ENTEROC OCCAL UTI N39.0 (ICD-10-CM ) 11/05 Active 11/05 Keren Raplh Urinary tract infection, site not specified History of TIRSO FUNGEMIA unknown 11/05 Active 11/05 Keren Ralph unknown CHRONIC RENAL INSUFFICIENC Y 71088867 (SNOMED CT) 11/05 Active 11/05 Keren Ralph Chronic renal failure FEVER 938804911 (SNOMED CT) 11/05 Resolved 11/05 Keren Ralph Fever LEUKOCYTOSIS 022197197 (SNOMED CT) 11/05 Inactive 11/05 Keren Ralph Leukocytosis DISSEMINATED CANDIDIASIS 62145414 (SNOMED CT) 11/05 Inactive 11/05 Keren Rosas Invasive candidiasis HYPERTENSION 00481191 (SNOMED CT) 11/05 Inactive 11/05 Keren Ralph Hypertensive disorder HYPOKALEMIA 18307917 (SNOMED CT) 11/05 Inactive 11/05 Keren Ralph Hypokalemia TIRSO FUNGEMIA B49 (ICD-10-CM ) 11/05 Correction 11/05 Keren Rosas Unspecified mycosis TIRSO UTI 112.2 (ICD-9-CM) 11/05 Correction 11/05 Keren oRsas Candidiasis of other urogenital sites TIRSO UTI N39.0 (ICD-10-CM ) 11/05 Correction 11/05 Keren Rosas Urinary tract infection, site not specified DISSEMINATED CANDIDIASIS 88154280 (SNOMED CT) 11/05 Removed 11/05 Keren Rosas Invasive candidiasis FUNGEMIA 337927613 (SNOMED CT) 11/05 Correction 11/05 Keren Rosas Fungemia NEPHROLITHIA SIS 50013548 (SNOMED CT) 11/05 Active 11/05 Keren Rosas Kidney stone LEUKOCYTOSIS 081009325 (SNOMED CT) 11/05 Removed 11/05 Keren Rosas Leukocytosis FEVER 730046119 (SNOMED CT) 11/05 Removed 11/05 Keren Rosas Fever ACUTE RENAL FAILURE 59531082 (SNOMED CT) 11/05 Correction 11/05 Keren Rosas Acute kidney injury HYPERTENSION 38476275 (SNOMED CT) 11/05 Removed 11/05 Keren Rosas Hypertensive disorder HYPOKALEMIA 76566568 (SNOMED CT) 11/05 Removed 11/05 Keren Ralph Hypokalemia OBESITY 591367455 (SNOMED CT) 11/05 Active 11/05 Keren Rosas Obesity Medications Medication Instructions Start Date Stop Date Generic Name NDC Provider BACTRIM DS 800-160 MG TABS 1 tab PO QD 0 SULFAMETHOXAZOLE- TRIMETHOPRIM [id number] Toby Caldwell MD CUBICIN SOLUTION RECONSTITUTED 750 mg IV Q 24 HOME HEALTH 11/20 DAPTOMYCIN SOLR 53948740973 Toby Caldwell MD CUBICIN SOLUTION RECONSTITUTED 750 mg IV Q 24 HOME HEALTH 11/21 DAPTOMYCIN SOLR 11333785870 Liz Shaikh RN DILAUDID 4 MG TABS HYDROMORPHONE HCL 34224210233 Navin Youngblood FLUCONAZOLE IN DEXTROSE 400 MG/200ML INTRAVENOUS SOLUTION FLUCONAZOLE IN DEXTROSE 53315564707 Navin Youngblood BROMO-SELTZER 650-2.67-3.5 MG-GM-GM PACK APAP-SODIUM BICARBONATE-CIT AC 23703255310 Navin Youngblood FLOMAX 0.4 MG CAPS TAMSULOSIN HCL 06700976181 Navin Youngblood SINGULAIR 10 MG TABS MONTELUKAST SODIUM 28981175759 Navin Youngblood LEVOCETIRIZINE DIHYDROCHLORIDE 5 MG TABS LEVOCETIRIZINE DIHYDROCHLORIDE 47051193884 Navin Youngblood LISINOPRIL-HYDROCH LOROTHIAZIDE 10-12.5 MG TABS LISINOPRIL-HYDROC HLOROTHIAZIDE 26488520073 Navin Youngblood ADVAIR HFA AERO FLUTICASONE-SALME TEROL AERO 46836549279 Navin Youngblood ALLOPURINOL 300 MG TABS twice a day ALLOPURINOL 18415813803 Navin Youngblood COMBIVENT AEROSOL IPRATROPIUM-ALBUT GRACIE AERO 81316829003 Navin Youngblood Medications Administered No information available. Allergies, Adverse Reactions, Alerts No information available. Results Date Name Value Unit Range Flag Description Office Visit: hosp f/u rm 5 CIGARET SMKG yes Tobacco smoking status SMOK STATUS current every day smoker Tobacco smoking status Clinical Lists Update: CARLOS jolly bs 11/20/11 CPK 68 U/L Creatine domitila se [Enzymatic activity/volume] in Serum or Plasma MONOCYTE % 5.2 % Monocytes/ 100 leukocytes in Blood by Automated count Office Visit SMOK ADVICE yes Smoking c essation education (procedure) MEDS REVIEW Done Documenta tion of current medications (procedure) Lab Report: CBC w Auto Diff BASOPHIL % 0.6 % 0.0-1.0 N Basophils/ 100 leukocytes in Blood by Manual count % EOS AUTO 2.1 % 0.0-3.0 N Eosinophil s/100 leukocytes in Blood by Automated count MONOCYTE BF 6.0 % 0.0-12.0 N monocyte s as percent of body fluid leukocytes LYMPHS % 42.6 % 24.0-44.0 N Lymphocyte s/100 leukocytes in Blood by Automated count PMN % 48.7 % 41.0-71.0 N Neutrophils /100 leukocytes in Blood by Automated count BASOABSOLMAN 0.06 K/MCL {Cells}/ uL 0.00-0.20 N basophils, absolute, manual EOS ABSLT 0.21 10*3/uL 0.10-0.30 N Eosinophi ls [#/volume] in Blood MONOCYTABMAN 0.60 K/MCL {Cells}/ uL 0.00-1.00 N monocytes, absolute, manual LYMPHSABSMAN 4.25 K/MCL {Cells}/ uL 0.60-4.80 N lymphocytes, absolute, manual ABS NEUTROPH 4.85 10*3/uL 1.50-8.30 N Neutro phils [#/volume] in Blood PLATELETS 258 10*3/mm3 150-450 N Platelets [#/volume] in Blood by Automated count RDW_ 15.1 11.3-14.5 H RDW, no uni ts MCHC 33.1 G/DL 32.0-36.0 N MCHC [Mass/ volume] by Automated count MCH 30.6 pg 27.0-31.0 N MCH [Entiti c mass] by Automated count MCV 92.6 fL 80.0-99.0 N MCV [Entiti c volume] by Automated count HCT 36.3 % 38.9-50.9 L Hematocrit [Volume Fraction] of Blood by Automated count HGB 12.0 g/dL 13.1-17.5 L Hemoglobin [Mass/volume] in Blood RBC 3.92 M/MCL 10*6/mm3 4.20-5.76 L Erythro cytes [#/volume] in Blood by Automated count WBC 9.97 10*3/mm3 3.50-10.80 N Leukocyte s [#/volume] in Blood by Automated count Lab Report: Urinalysis UROBILINOGEN 0.2 0.2-1.0 N Urobilin ogen [Presence] in Urine by Test strip WBC DIPSTK U Trace Negative A Leukocy te esterase [Presence] in Urine by Test strip NITRATE UR Negative Negative N Nitrate [Presence] in Urine PROTEIN, URN Negative Negative N Albumi n [Presence] in Urine BLOOD UR Negative Negative N BLOOD, URI NE (hematuria) BILIRUBIN UR Negative Negative N Biliru bin.total [Presence] in Urine by Test strip KETONES URN Negative Negative N Ketones [Mass/volume] in Urine by Test strip GLUC UR MARCIA Negative g/dL Negative N Glucos e [Mass/volume] in Urine SPEC GR URIN 1.021 1.001-1.03 N Speci fic gravity of Urine by Test strip PH URINE 7.0 4.5-8.0 N pH of Urine by Test strip APPEARANCE U Clear Appearan ce of Urine UA COLOR Yellow Color of Uri ne Lab Report: Urine Microscopi c HYAL CAST UR 0-6 /[LPF] 0-6 N Hyaline casts [#/area] in Urine sediment by Microscopy low power field BACTERIA URN None Seen None Seen N Bact eria [#/area] in Urine sediment by Microscopy high power field EPI CELL UR 3-6 /[LPF] None Seen, A Epithe lial cells [#/area] in Urine sediment by Microscopy high power field URBC 0-2 /hpf /[HPF] None Seen, N Erythrocy corry [#/area] in Urine sediment by Microscopy high power field UWBC 3-5 None Seen, A Leukocytes [#/area] in Urine sediment by Microscopy high power field Lab Report: Comprehensive Me tabolic Panel ANIONGAP 5 mmol/L 3-11 N anion gap, s monika GFRC 79 mL/min/1 .73m2 Glomerular Filtration Rate Calculation ALBUMIN 4.2 g/dL 3.4-4.8 N Albumin [Mass/volume] in Serum or Plasma PROTEIN, TOT 8.1 g/dL 6.4-8.3 N Protein [Mass/volume] in Serum or Plasma BILI TOTAL 0.4 mg/dL 0.3-1.2 N Bilirubin. total [Mass/volume] in Serum or Plasma SGPT (ALT) 29 U/L 7-40 N Alanine aminotransferase [Enzymatic activity/volume] in Serum or Plasma SGOT (AST) 23 U/L 8-33 N Aspartate aminotransferase [Enzymatic activity/volume] in Serum or Plasma ALK PHOS 82 U/L 25-100 N Alkaline phosphatase [Enzymatic activity/volume] in Blood CALCIUM 9.4 mg/dL 8.7-10.4 N Calcium [Moles/volume] in Serum or Plasma CO2 29 mmol/L 20-31 N Carbon dioxid e, total [Moles/volume] in Venous blood CHLORIDE 108 mmol/L 98-107 H Chloride [Moles/volume] in Serum or Plasma POTASSIUM 3.7 mmol/L 3.4-5.4 N Potassium [Moles/volume] in Serum or Plasma SODIUM 142 mmol/L 136-145 N Sodium [Moles/volume] in Serum or Plasma CREATININE 1.1 mg/dL 0.6-1.3 N Creatinine [Mass/volume] in Serum or Plasma BUN 12 mg/dL 6-20 N Urea nitrogen [Mass/volume] in Serum or Plasma GLUCOSE SER 79 mg/dL 70-100 N Glucose [Mass/volume] in Serum or Plasma Lab Report: ESR (Sed Rate) ESR 40 mm/h 0-20 H Erythrocyte sedimentation rate by Westergren method Lab Report: C-Reactive Prote in CRPCARDRISK 4.600 mg/L 0.000-10.0 N C reac tive protein [Mass/volume] in Serum or Plasma Lab Report: Culture Urine CULTURE Specimen/Peyton rce: Urine/Clean Catch culture, comment Plan of Care Type Date Detail Pending order CMP Pending order CBC with Differe ntial Pending order Sedimentation Ra te (ESR) Pending order C- reactive prot ein Pending order Urine Culture & Sensitivity Pending order Urinalysis Pending order New Oral Antibio tic Pending order Urine Culture & Sensitivity Pending order Urinalysis Procedures Code Procedure Name Date Entry Date CPT-35599 CMP CPT-15885 CBC with Differential CPT-40509 Sedimentation Rate (ESR) 201 04/21/08 CPT-31235 C- reactive protein CPT-59096 Urine Culture & Sensitivity CPT-03868 Urinalysis CPT-ortega New Oral Antibiotic CPT-96341 Urine Culture & Sensitivity CPT-07610 Urinalysis Vital Signs Date Name Value Unit Description BMI (Body Mass Index) 39.69 kg/m2 Bod y Mass Index (Ratio) Body Temperature 99.1 [degF] temperat ure E&M BP Diastolic 86 mm[Hg] blood pressu re, diastolic BP Systolic 140 mm[Hg] blood pressur e, systolic Heart Rate 64 /min pulse rate Height 75 [in_us] height E&M Respiratory Rate 16 /min respirat ory rate E&M Weight Measured 316.4 [lb_av] weight E& M Immunizations No information available. Advance Directives No information available.
[2023-10-12 16:01] LABS: Basophils # 0.1 K/mm3 (0-0.2); Basophils % 0.8 % (0.1-2.0); Eosinophils # 0.3 K/mm3 (0.0-0.4); Hematocrit 38.1 % (42.0-52.0); Hemoglobin 12.3 g/dL (14.1-18.0); Lymphocytes # 4.4 K/mm3 (0.7-4.5); Lymphocytes % 34.2 % (10-50); Mean Corpuscular HGB Conc 32.2 g/dL (31.8-35.4); Mean Corpuscular Hemoglobin 29.9 pg (27.0-31.2); Mean Platelet Volume 9.3 fl (7.4-10.4); Monocytes # 0.6 K/mm3 (0.1-1.0); Monocytes % 4.9 % (1.7-9.3); Neutrophils # 7.4 K/mm3 (1.8-7.8); Neutrophils % 58.2 % (37.0-80.0); Platelet Count 231 K/mm3 (142-424); Red Cell Distribution Width 15.5 % (11.5-17.5); White Blood Count 12.7 K/mm3 (4.8-10.8)
[2023-10-12 16:04] LABS: Albumin Level 4.4 g/dl (3.5-5.0); Chloride 108 mmol/L (98-107); Potassium 3.7 mmoL/L (3.5-5.1); Sodium 140 mmol/L (136-145)
[2023-10-12 16:07] LABS: Alanine Aminotransferase 28 U/L (12-78); Albumin/Globulin Ratio 1.3 (1.1-1.8); Alkaline Phosphatase 100 U/L (38-126); Anion Gap 7.7 mEq/L (5-15); Aspartate Amino Transferase 24 U/L (17-59); Bilirubin,Total 0.8 mg/dl (0.2-1.3); Blood Urea Nitrogen 17 mg/dl (9-20); Calcium 8.8 mg/dl (8.4-10.2); Carbon Dioxide 28 mmol/L (22.0-30.0); Creatinine Clearance Estimated 3 mL/min (50-200); Estimated Glomerular Filt Rate 67 ml/min (>60); GFR (African American) 81 ML/MIN (>60); Globulin 3.4 g/dL (1.3-3.2); Glucose 165 mg/dl (74-100); Total Protein,Serum 7.8 g/dl (6.3-8.2)
[2023-10-18 17:10] LABS: Interpretation: Negative (.); e13a2 (b2a2) transcript <0.0032 % % (.); e14a2 (b3a2) transcript <0.0032 % % (.); e1a2 transcript <0.0032 % % (.)
[2023-10-31 15:03] LABS: PDF: SCANNED IMAGE
== END 2023-10-12 15:45 | disposition home or self-care (01) ==
LOC: INF 15:29
PROVIDERS: PCP Internal Medicine; Visit Provider Internal Medicine Medical Oncology
DX: C92.10 Chronic myeloid leukemia, BCR/ABL-positive, not having achieved remission (principal)
CPT/HCPCS: 36415; 80053; 81206; 85025

== ENCOUNTER 2023-11-05 08:25 | Emergency (ER) | payer MEDICARE, SELFPAY ==
[2023-11-05 08:26] VITALS: BP 187/107; PULSE 64; RESP 18; TEMP 37.3; O2SAT 99; BMI 33.3
--- NOTE | 2023-11-05 08:30 | PC.NURSE ---
dr way at bedside
--- NOTE | 2023-11-05 08:37 | CT_ITS ---
FINAL REPORT TECHNIQUE: Axial images were obtained of the lumbar spine by computed tomography. Coronal and sagittal reconstruction process performed. This study was performed with techniques to keep radiation doses as low as reasonably achievable (ALARA). Individualized dose reduction techniques using automated exposure control or adjustment of mA and/or kV according to the patient''s size were employed. CLINICAL HISTORY: hardware, Lumbar pain L paraspinal severe COMPARISON: None FINDINGS: CT LUMBAR SPINE WITHOUT CONTRAST: The patient has undergone prior posterior fusion at the L4-5 and L5-S1 levels. There is mild spondylolisthesis of L5 on S1. Multilevel disc space narrowing is noted, with vacuum phenomenon at the T12-L1 level. There is mild dextroscoliosis of the lumbar spine. T12-L1: A mild to moderate annular bulge is present with mild bilateral neural foraminal narrowing. L1-L2: No evidence of significant canal stenosis or neuroforaminal narrowing is present. L2-L3: No evidence of significant canal stenosis or neural foraminal narrowing is present. L3-4: A moderate annular bulge is noted with bilateral facet arthropathy. There is moderate to severe canal stenosis and moderate bilateral neural foraminal narrowing. L4-5: Posterior fusion hardware is present, with moderate facet arthropathy and mild to moderate bilateral neural foraminal narrowing. L5-S1: Posterior fusion hardware is present. There is grade 1 spondylolisthesis of L5 on S1 with a large annular bulge. There is severe right and moderate left neural foraminal narrowing. No evidence of hardware loosening is seen on this exam. IMPRESSION: Multilevel degenerative changes present in the lumbar spine, with prior posterior fusion at the L4-5 and L5-S1 levels. There is no evidence of hardware loosening on this exam. Reviewed, Interpreted and Dictated by Wing Davila MD Transcribed by Gaby Boss Authenticated and [facility]
--- NOTE | 2023-11-05 08:39 | HMH.EDGENADL ---
Discharge Plan Disposition Patient Disposition: Home, Self-Care Prescriptions Prescriptions: New methocarbamol 500 mg tablet 1,000 mg PO Q8H PRN (Reason: back spasm) Qty: 90 0RF lidocaine 5 % adhesive patch,medicated 1 patch topical DAILY Qty: 30 0RF Rx Instructions: leave on most painful area for up to 12 hrs No Action sodium bicarbonate 325 mg tablet 325 mg PO BID tamsulosin [Flomax] 0.4 mg capsule 0.4 mg PO HS levocetirizine [Xyzal] 5 mg tablet 5 mg PO HS fluticasone propion-salmeterol [Advair Diskus] 500-50 mcg/dose blister with device 1 inh INHALATION BID furosemide [Lasix] 20 mg tablet 20 mg PO DAILY PRN (Reason: fluid) Bosulif 400 mg tablet 400 mg PO HS albuterol sulfate 90 mcg/actuation HFA aerosol inhaler 2 puff inhalation Q6H PRN (Reason: .) Combivent Respimat 20-100 mcg/actuation mist See Rx Instructions .ROUTE .COMPLEX Qty: 4 2RF Dose Instruction: USE 1 PUFF BY MOUTH EVERY FOUR TO SIX HOURS NEEDED Rx Instructions: USE 1 PUFF BY MOUTH EVERY FOUR TO SIX HOURS NEEDED metformin 1,000 mg tablet See Rx Instructions .ROUTE .COMPLEX Qty: 180 1RF Dose Instruction: TAKE 1 TABLET BY MOUTH TWICE DAILY WITH MEALS Rx Instructions: TAKE 1 TABLET BY MOUTH TWICE DAILY WITH MEALS losartan 100 mg tablet See Rx Instructions .ROUTE .COMPLEX Qty: 90 1RF Dose Instruction: TAKE 1 TABLET BY MOUTH ONCE DAILY Rx Instructions: TAKE 1 TABLET BY MOUTH ONCE DAILY amlodipine 5 mg tablet See Rx Instructions .ROUTE .COMPLEX Qty: 90 1RF Dose Instruction: TAKE 1 TABLET BY MOUTH ONCE DAILY Rx Instructions: TAKE 1 TABLET BY MOUTH ONCE DAILY metoprolol succinate 50 mg tablet extended release 24 hr See Rx Instructions .ROUTE .COMPLEX Qty: 90 1RF Dose Instruction: TAKE 1 TABLET BY MOUTH ONCE DAILY Rx Instructions: TAKE 1 TABLET BY MOUTH ONCE DAILY montelukast 10 MG tablet 10 mg PO HS allopurinol 300 mg tablet 300 mg PO BID rosuvastatin 40 mg tablet 40 mg PO HS Referrals Follow up/Referrals: Sulaiman Beach MD [Primary Care Provider] - See instructions Activity Restrictions/Add. Instructions Additional Instructions/Restrictions: At this time it was felt you are safe to be discharged home. If new or worsening symptoms please do not hesitate to return the emergency department. It is very important that you keep moving so your back does not lock up, do not do strenuous activity however please keep mobile and take your medications as prescribed. If symptoms persist longer than 2 weeks follow-up with your family doctor for continued evaluation. Clinical Impressions Clinical Impression: Back pain, Slipped intervertebral disc Instructions Patient Instructions: DI for Low Back Pain Print Language Print Language: Luxembourgish Discharge ED Provider: Jaquan Morales General Adult HPI General Chief complaint: Back Pain/Injury Stated complaint: Lower back pain Time Seen by Provider: 11/05/23 08:29 History of Present Illness HPI narrative: Patient is a 63-year-old male with past medical history of CML, previous lumbar spinal surgery for right-sided lower back pain who presents emergency department for evaluation of back pain. Recently patient drove 3 hours to play and 18-hole round of golf and return home. The next morning his left lower paraspinal area with severe, initially got a little bit better yesterday however has resurged this morning. No incontinence, no midline pain, has been able to bear weight with difficulty, no trauma, no other acute complaints at this time. Related Data Home Medications ?Medication ?Instructions ?Recorded ?Confirmed montelukast 10 mg tablet 10 mg PO HS Asthma 03/14/18 11/05/23 levocetirizine 5 mg tablet (Xyzal) 5 mg PO HS Allergy symptoms 09/20/18 11/05/23 sodium bicarbonate 325 mg tablet 325 mg PO BID Kidney stones 09/20/1811/04
[2023-11-05 09:00] VITALS: BP 162/82; PULSE 64; RESP 18; O2SAT 99
[2023-11-05 09:04] LABS: Basophils # 0.1 K/mm3 (0-0.2); Basophils % 0.9 % (0.1-2.0); Eosinophils # 0.1 K/mm3 (0.0-0.4); Eosinophils % 1.4 % (0.1-12.0); Hematocrit 43.1 % (42.0-52.0); Hemoglobin 13.3 g/dL (14.1-18.0); Lymphocytes # 4.3 K/mm3 (0.7-4.5); Lymphocytes % 42.3 % (10-50); Mean Corpuscular HGB Conc 30.8 g/dL (31.8-35.4); Mean Corpuscular Hemoglobin 29.6 pg (27.0-31.2); Mean Platelet Volume 8.9 fl (7.4-10.4); Monocytes # 0.5 K/mm3 (0.1-1.0); Monocytes % 4.6 % (1.7-9.3); Neutrophils # 5.1 K/mm3 (1.8-7.8); Neutrophils % 50.8 % (37.0-80.0); Platelet Count 205 K/mm3 (142-424); Red Blood Count 4.49 M/mm3 (4.60-6.20); Red Cell Distribution Width 15.9 % (11.5-17.5); White Blood Count 10.1 K/mm3 (4.8-10.8)
[2023-11-05 09:17] LABS: Albumin Level 4.4 g/dl (3.5-5.0); Chloride 105 mmol/L (98-107); Sodium 139 mmol/L (136-145)
[2023-11-05 09:18] LABS: Potassium 4.2 mmoL/L (3.5-5.1)
[2023-11-05 09:20] LABS: Alanine Aminotransferase 34 U/L (12-78); Albumin/Globulin Ratio 1.3 (1.1-1.8); Alkaline Phosphatase 104 U/L (38-126); Anion Gap 9.2 mEq/L (5-15); Aspartate Amino Transferase 32 U/L (17-59); Bilirubin,Total 0.9 mg/dl (0.2-1.3); Blood Urea Nitrogen 13 mg/dl (9-20); Carbon Dioxide 29 mmol/L (22.0-30.0); Creatinine Clearance Estimated 123 mL/min (50-200); Estimated Glomerular Filt Rate 75 ml/min (>60); GFR (African American) 91 ML/MIN (>60); Globulin 3.5 g/dL (1.3-3.2); Total Protein,Serum 7.9 g/dl (6.3-8.2)
[2023-11-05 09:21] LABS: Calcium 8.9 mg/dl (8.4-10.2); Glucose 110 mg/dl (74-100)
[2023-11-05 09:30] VITALS: BP 163/85
--- NOTE | 2023-11-05 10:00 | PC.NURSE ---
updated pt on plan of care. at bedside. no questions or concerns voiced. call light within reach.
[2023-11-05 10:01] VITALS: BP 177/92
--- NOTE | 2023-11-05 10:34 | PC.NURSE ---
updated pt and spouse on POC and awaiting CT results. Pt is feeling much better and able to move around well.
--- NOTE | 2023-11-05 10:48 | PC.NURSE ---
pt resting in bed. no questions or concerns voiced at this time. bed in lowest position. call light within reach.
[2023-11-05 11:16] VITALS: BP 170/100; PULSE 65; RESP 18; TEMP 37.3; O2SAT 96
--- NOTE | 2023-11-05 11:16 | PC.NURSE ---
Dr. Morales at bedside
== END 2023-11-05 11:29 | disposition home or self-care (01) ==
PROVIDERS: Emergency Provider Emergency Medicine; PCP Internal Medicine
DX: M43.17 Spondylolisthesis, lumbosacral region (principal); M51.26 Other intervertebral disc displacement, lumbar region; I10 Essential (primary) hypertension; E78.5 Hyperlipidemia, unspecified; I25.10 Atherosclerotic heart disease of native coronary artery without angina pectoris; F17.210 Nicotine dependence, cigarettes, uncomplicated
CPT/HCPCS: 72131; 80053; 85025; 96374; 99284; J1885

== ENCOUNTER 2023-11-21 09:00 | Outpatient (RCR) | payer MEDICARE, SELFPAY ==
--- NOTE | 2023-11-14 10:51 | HMH.PTOPEV ---
PT Outpatient Evaluation Rehab PT Outpatient Evaluation Start: 11/14/23 09:55 Freq: Status: Active Protocol: Document 11/14/23 09:55 KATE (Rec: 11/14/23 10:50 KATE [id number]) E-signed By Shemar Ruiz, PT Outpatient Therapy Subjective History Subjective History Patient is a 63 year old male presenting to outpatient PT with reports of chronic LBP that has progressively gotten worse over the past month. Previous hx of LS fusion L 4/5 L5/S1. No reports of radicular symptoms. Improved symptoms noted with addition of heel lifts R from chiropractor. SI special tests negative today. Most recent imaging indicates multi -level DDD. Symptoms of insidious onset. Other comorbidities include hx of HL , HTN, diabetes and CML. New diagnosis of cancer in past 12 No months? Chief Complaint Spasms,Stiff Symptom Type Ache,Dull Symptoms Relieved By Rest/Positioning,Heat,Ice, Prescription Meds Symptoms Aggravated By Standing,Bending/Stooping, Physical Activity,Lifting Prior Functional Limitations None Current Functional Limitations Lifting,Housework,Standing Symptom Description Intermittent Level of pain today (0-10) 0 Pain scale - at its best (0-10) 0 Pain scale - at its worst (0-10) 9 Lumbopelvic Eval Posture Thoracic Spine Posture Standing Position Increased Kyphosis Lumbar Spine Posture Standing Position Increased Lordosis Assistive device Assistive Devices None / NA Palapation tenderness bilateral lumbar spinal tenderness Yes: L 4/5/S1 2/4 Accessory Movement L3 bilateral L4 bilateral L5 bilateral S1 bilateral Range of Motion Lumbar Spine Active Flexion Range of WNL Motion (degrees) Lumbar Spine Active Extension Range of 11 Motion (degrees) Left Lumbar Spine Lateral Flexion Active 18 Range of Motion (degrees) Right Lumbar Spine Lateral Flexion 14 Active Range of Motion (degrees) Manual Muscle Test Bilateral Knee Extension Strength Grade 5 Normal Knee Flexion Strength Grade 5 Normal Hip Flexion Strength Grade 5 Normal Extensor Hallucis Longus Strength Grade 5 Normal Ankle Dorsiflexion Strength Grade 5 Normal Gastronemius/Soleus Strength Grade 5 Normal Special Tests Hip Jony (BONNIE) Test Positive Left,Positive Right Hip Jie Test Positive Left,Positive Right Hip Piriformis Test Positive Left,Positive Right Varun Test Positive Sacroiliac Joint Compression Test Negative Left,Negative Right Sacroiliac Joint Distraction Test Negative Left,Negative Right Lumbar Long [place] Distraction Test/Manual Positive Traction Oswestry Index Section 1 Pain Intensity The pain comes and goes and is very mild Section 2 Personal Care (Washing,Dresing) increase the pain and I find it necessary to change my way of doing it Section 3 Lifting Pain prevents me from lifting weights off the floor Section 4 Walking I have no pain when walking Section 5 Sitting I can sit in my favorite chair for as long as I like Section 6 Standing I can stand as long as I want without pain Section 7 Sleeping I get no pain in bed Section 8 Social Life My social life is normal and gives me no extra pain Section 9 Traveling I get some pain when traveling , but none of my usual forms of travel m Section 10 Changing Degreee of Pain My pain is getting better Score and Risk Level Oswestry Sc 7 Oswestry Risk Level Mild Disability Outpatient Therapy Assessment Impairments Problems/Impairmments Palpation Tenderness,Impaired Range of Motion,Impaired Sitting,Impaired Household Care,Impaired Squatting, Impaired Bending,Impaired Recreational Activities, Subjective C/O Pain Prognosis Rehab Potential Good Clinical Impression Consistent with Diagnosis Yes Short Term Goals Number of Weeks 2 Decrease Subjective C/O Pain Yes: 5/10 at worst Patient to be Ind w/ HEP Yes Dairy Farm Manager Goals Number of Weeks 4-6 Decreased Palpation Tenderness Yes: 1/4 Increase Range of Motion Yes: WNL Return to Recreational Activities Yes Improve Oswestry Score Yes: No disability Decrease Subjective C/O Pain Yes: 2/10 at worst Outpatient Therapy Plan of Care Treatment Plan May Include Therapeutic Exercise Including Home Yes Exercise Program Manual Therapy Techniques Yes Neuromuscular Re-education Yes Therapeutic Activities to Return to Yes Previous Functional/Work Level Gait Training Yes ADL/Self Care Education Yes Mechanical Traction Yes Dry Needling Yes Thermal Modalities Yes Electrical Stimulation Yes Ultrasound/Phonophoresis Yes Iontophoresis Yes Orthotics/Bracing/Splinting Yes Vasopneumatic Compression Pump Yes Massage Yes Eval/Re-Eval Yes Frequency Times per week 2-3 Duration Number of Weeks 4-6 Addendums This patient is a candidate for social No or vocational rehab? Patient/Guardian verbally acknowledges Yes understanding of treatment program and consents to further treatment? Patient/Guardian verbally acknowledges Yes understanding of diagnosis, prognosis and goals for treatment? Eval Complexity PT Charges 09426 - Moderate Complexity Shoulder/Elbow Eval Shoulder Objective Measurements Elbow Objective Measurements PHYSICIAN CERTIFICATION: I certify the specified therapy services for Reji Soto are required, authorized, and reviewed every 30 days.
== END 2023-11-21 09:05 | disposition home or self-care (01) ==
LOC: PT 09:00
PROVIDERS: Visit Provider Physician Assistant
DX: M54.9 Dorsalgia, unspecified (principal)
CPT/HCPCS: 97014; 97110; 97163; 97530; G0283

== ENCOUNTER 2024-03-10 16:07 | Emergency (ER) | payer MEDICARE, SELFPAY ==
[2024-03-10 17:15] VITALS: BP 164/84; PULSE 79; RESP 24; TEMP 36.8; O2SAT 97; BMI 35.2
--- NOTE | 2024-03-10 17:44 | ED_ITS ---
Discharge Plan Disposition Patient Disposition: Home, Self-Care Condition: Good Prescriptions Prescriptions: New benzonatate 100 mg capsule 100 mg PO TID PRN (Reason: cough) Qty: 30 0RF methylprednisolone [Medrol (Mark)] 4 mg tablets,dose pack See Rx Instructions .Route .COMPLEX 6 Days Qty: 21 0RF Rx Instructions: taper pack; guaifenesin [Mucinex] 600 mg tablet extended release 12hr 600 - 1,200 mg PO BID PRN (Reason: cough) Qty: 20 0RF azithromycin [Zithromax Z-Mark] 250 mg tablet See Rx Instructions .ROUTE .COMPLEX 5 Days Qty: 6 0RF Rx Instructions: For 250 mg dose pack: take 500 mg today (day 1), then 250 mg for 4 days (days 2-5) No Action sodium bicarbonate 325 mg tablet 325 mg PO BID furosemide [Lasix] 20 mg tablet 20 mg PO DAILY PRN (Reason: fluid) albuterol sulfate 90 mcg/actuation HFA aerosol inhaler 2 puff inhalation Q6H PRN (Reason: .) metformin 1,000 mg tablet See Rx Instructions .ROUTE .COMPLEX Qty: 180 1RF Dose Instruction: TAKE 1 TABLET BY MOUTH TWICE DAILY WITH MEALS Rx Instructions: TAKE 1 TABLET BY MOUTH TWICE DAILY WITH MEALS losartan 100 mg tablet See Rx Instructions .ROUTE .COMPLEX Qty: 90 1RF Dose Instruction: TAKE 1 TABLET BY MOUTH ONCE DAILY Rx Instructions: TAKE 1 TABLET BY MOUTH ONCE DAILY amlodipine 5 mg tablet See Rx Instructions .ROUTE .COMPLEX Qty: 90 1RF Dose Instruction: TAKE 1 TABLET BY MOUTH ONCE DAILY Rx Instructions: TAKE 1 TABLET BY MOUTH ONCE DAILY metoprolol succinate 50 mg tablet extended release 24 hr See Rx Instructions .ROUTE .COMPLEX Qty: 90 1RF Dose Instruction: TAKE 1 TABLET BY MOUTH ONCE DAILY Rx Instructions: TAKE 1 TABLET BY MOUTH ONCE DAILY Bosulif 400 mg tablet 400 mg PO HS Qty: 30 6RF rosuvastatin 40 mg tablet 40 mg PO HS Qty: 90 1RF montelukast 10 MG tablet 10 mg PO HS allopurinol 300 mg tablet 300 mg PO BID tamsulosin 0.4 mg capsule 0.4 mg PO DAILY Referrals Follow up/Referrals: Sulaiman Beach MD [Primary Care Provider] - See instructions Activity Restrictions/Add. Instructions Additional Instructions/Restrictions: Make sure to separate your dose of Sodium Bicarb and your Medrol dose pack by at least 2 hours * Start antibiotic today. Be sure to complete entire prescription even if feeling better * Monitor temp. Tylenol every 4 hours as needed and / or ibuprofen every 6 hours as needed ( As long as your primary care physician has told you that it ok to take both. For fever/aches/pains ER if no less than 101 despite Tylenol or Motrin * Humidifier/vaporizer or hot steamy shower * Inhaler every 4-6 hours as needed like we discussed. If unsure how to use it, ask pharmacist to demonstrate how. Should help open airways and improve cough, wheezing, and shortness of breath * Mucinex during the day for your cough and cough suppressant only at night. Be sure to drink lots of water. Insurance may not cover a prescriptions for mucinex. Might be cheaper to get 400mg tablets and take 2 tablet in the morning, mid-day and evening with lots of water. *Tessalon Perles will not cause drowsiness but use at bedtime to help stop cough so that you may get some rest. *Start steroid today. Helps with inflammation therefore, cough and wheezing. Follow directions on the package. Reviewed side effects. Patient reports taking them before. Follow up IMMEDIATELY for new or worsening of symptoms OR no noticeable improvement over the next 48-72 hours. 911 immediately for any life threatening symptoms such as chest pain or difficulty breathing Clinical Impressions Clinical Impression: Sinusitis, Bronchitis Instructions Patient Instructions: DI for Sinusitis, Acute Bronchitis Print Language Print Language: Burkinan Discharge ED Provider: Ciara Jung [facility] [place] General Stated complaint: rayo, diff breathing cough Mode of Arrival: Ambulatory Source of Information: Patient Limitations: No Limitations Time Seen by Provider: 03/10/24 17:44 Description of Symptoms (Recalled from Triage Doc. by RN): PATIENT C/O CONGESTION, SOA, SNEEZING, AND NON-PRODUCTIVE COUGH X 2 DAYS HEENT Symptoms (Recalled from RN notes): Yes Resp Symptoms (Recalled from RN notes): Yes Skin Symptoms (Recalled from RN notes): No MS Symptoms (Recalled from RN notes): No Functional Status (Recalled from RN notes): WNL History of Present Illness Provider Complaint: Patient states that he is a smoker States that for the last couple of days he has been having cough, chest congestion and wheezing at times States he does have inhalers at home States he is not coughing anything up but feels like he can feel it rattling and sneezing Denies fever, denies chills Related Data Home Medications ?Medication ?Instructions ?Recorded ?Confirmed montelukast 10 mg tablet 10 mg PO HS Asthma 03/14/18 03/10/24 sodium bicarbonate 325 mg tablet 325 mg PO BID Kidney stones 09/20/18 03/10/24 furosemide 20 mg tablet (Lasix) 20 mg PO DAILY PRN fluid 03/25/21 02/21/24 albuterol sulfate 90 mcg/actuation 2 puff inhalation Q6H PRN . 04/05/22 02/21/24 aerosol inhaler allopurinol 300 mg tablet 300 mg PO BID Kidney stones 04/05/22 03/10/24 tamsulosin 0.4 mg capsule 0.4 mg PO DAILY 03/10/24 03/10/24 Previous Rx's ?Medication ?Instructions ?Recorded amlodipine 5 mg tablet See Rx Instructions .Route 10/25/23 .COMPLEX #90 tabs losartan 100 mg tablet See Rx Instructions .Route 10/25/23 .COMPLEX #90 tabs metformin 1,000 mg tablet See Rx Instructions .Route 10/25/23 .COMPLEX #180 tabs metoprolol succinate 50 mg See Rx Instructions .Route 10/25/23 tablet,extended release 24 hr .COMPLEX #90 tabs bosutinib 400 mg tablet (Bosulif) 400 mg PO HS CLL #30 tabs 12/25/23 rosuvastatin 40 mg tablet 40 mg PO HS High cholesterol #90 12/26/23 tabs azithromycin 250 mg tablet See Rx Instructions PO .COMPLEX 5 03/10/24 (Zithromax Z-Mark) days #6 tabs benzonatate 100 mg capsule 100 mg PO TID PRN cough #30 caps 03/10/24 guaifenesin 600 mg tablet, 600 - 1,200 mg (1 - 2 x 600 mg) PO 03/10/24 extended release 12 hr (Mucinex) BID PRN cough #20 tabs methylprednisolone 4 mg tablets in See Rx Instructions .Route 03/10/24 a dose pack (Medrol (Mark)) .COMPLEX 6 days #21 tabs Allergies Allergy/AdvReac Type Severity Reaction Status Date / Time ADRIENNE Inhibitors Allergy Severe ANGIOEDEMA Verified 02/21/24 08:18 Sulfa (Sulfonamide Allergy Verified 02/21/24 08:18 Antibiotics) Worker's Comp Is this a Worker's Comp case?: No [facility] Disclaimer: The information contained in this section may have been updated after the patient was seen, as this information can be updated by other users. Medical History First degree atrioventricular block by electrocardiogram Dyspnea Diastolic dysfunction with heart failure CAD (coronary artery disease) Abnormal cardiovascular function Coronary artery calcification seen on CAT scan Hyperlipidemia Hypertension Morbid obesity with BMI of 40.0-44.9, adult KING (dyspnea on exertion) Right bundle branch block (RBBB) determined by electrocardiography Social History Smoking Status: Current every day smoker tobacco type: cigarettes packs per day: 1 alcohol intake: current alcohol intake frequency: holidays/special occasions only substance use type: denies use current occupational status: retired Travel in the last 8 weeks: Inside the [place] household members: spouse housing: house Have you lived/traveled outside US in past 30 days?: No Contact w/someone who lives/traveled outside US past 30 days?: No Exposure to someone with infectious disease in past 14 days?: No Do you have a fever (greater than 100.4 F or 38 C)?: No Have you tested positive for COVID-19: No Exposed to someone with COVID-19 in past 14 days?: No Do you have a sore throat?: No Do you have a cough?: Yes Do you have any weakness?: No Do you have any diarrhea?: No Are you experiencing any unusual bleeding?: No Do you have any muscle aches/pain?: No Do you have any abdominal pain?: No Are you experiencing loss of taste or smell?: No ROS Obtained: Yes All systems reviewed & no additional complaints except as documented and Yes Systems reviewed as appropriate & no additional complaints except as documented Constitutional Constitutional: Reports system reviewed and no additional complaints, except as documented, Reports as per HPI and Denies fever(s) ENT Ears, Nose, Mouth, and Throat: Reports system reviewed and no additional complaints, except as documented, Reports as per HPI, Reports nasal congestion, Reports sinus pain, Reports sinus pressure and Reports other (sneezing) Cardiovascular Cardiovascular: Reports system reviewed and no additional complaints, except as documented and Reports as per HPI Respiratory Respiratory: Reports system reviewed and no additional complaints, except as documented, Reports as per HPI, Reports shortness of breath (at times after coughing), Reports chest congestion and Reports cough Gastrointestinal Gastrointestingal: Reports system reviewed and no additional complaints, except as documented and as per HPI Musculoskeletal Musculoskeletal: Reports system reviewed and no additional complaints, except as documented and Reports as per HPI Physical Exam General General appearance: alert and in no apparent distress ENT ENT exam: Present mucous membranes moist Expanded ENT Exam Nose exam: Present sinus tenderness Throat exam: Present other (PND noted) Respiratory Respiratory exam: Present normal lung sounds bilaterally and wheezes (mild scattered wheezing noted); Absent respiratory distress Cardiovascular Cardiovascular exam: Present regular rate, normal rhythm and normal heart sounds Abdominal Exam Abdominal exam: Present soft and normal bowel sounds; Absent distention or tenderness Neurological Exam Neurological exam: Present alert, oriented X3 and normal gait Medical Decision Making Medical Records Screening: Per USPSTF and CDC recommendations, given the prevalence of disease in our region, it is our hospital?s policy to screen for HIV and viral Hepatitis for all patients aged 18 and over and those with ongoing risk factors. Adonis Inquiry Pt receiving controlled substance: No Adonis was queried for this patient: No Vital Signs: 03/10/24 17:15 Temperature 98.3 F Temperature Source Oral Pulse Rate [Left Brachial] 79 Respiratory Rate 24 Blood Pressure [Left Arm] 164/84 H Blood Pressure Mean [Left Arm] 110 Blood Pressure Source [Left Arm] Automatic Cuff Blood Pressure Position [Left Arm] Sitting 02 Sat by Pulse Oximetry 97 Oxygen Delivery Method Room Air Radiology Data #1: Image(s): Chest Image Reviewed: Yes I have reviewed radiologist's interpretation IMPRESSION: No evidence of acute cardiopulmonary disease. Medical Decision Narrative: Patient states that he is a diabetic but well controlled has taken Azithromycin and Medrol in the past without complications or reactions
--- NOTE | 2024-03-10 17:47 | XR_ITS ---
PROCEDURE INFORMATION: Exam: XR Chest Exam date and time: 03/10/2024 5:49 PM Age: 63 years old Clinical indication: Cough; Additional info: Cough/congestion, lifetime smoker TECHNIQUE: Imaging protocol: Radiologic exam of the chest. Views: 2 views. COMPARISON: CT ANGIO CHEST PE PROTOCOL 04/05/2022 12:49 AM FINDINGS: Lungs: Subsegmental atelectasis/scarring in the lingula, unchanged. No evidence of acute airspace infiltrate. No pulmonary edema. Pleural spaces: No visible pleural effusion. No pneumothorax. Heart/Mediastinum: Mildly enlarged cardiac silhouette with prominent right heart border, unchanged from prior exam. No mediastinal widening. Bones/joints: No evidence of acute osseous abnormality. IMPRESSION: No evidence of acute cardiopulmonary disease.
[2024-03-10] MEDS: IPRATROPIUM/ALBUTEROL 3 ML NEB IH (18:06)
[2024-03-10 19:04] VITALS: BP 164/84; PULSE 79; RESP 24; TEMP 36.8; O2SAT 97
== END 2024-03-10 19:05 | disposition home or self-care (01) ==
PROVIDERS: Emergency Provider Nurse Practitioner; PCP Internal Medicine
DX: J40 Bronchitis, not specified as acute or chronic (principal); J32.9 Chronic sinusitis, unspecified; R06.02 Shortness of breath; R06.7 Sneezing; R05.9 Cough, unspecified; R09.81 Nasal congestion; R06.2 Wheezing; J34.9 Unspecified disorder of nose and nasal sinuses
CPT/HCPCS: 71046; 99212; G0381; J7620

== ENCOUNTER 2024-03-27 10:52 | Outpatient (CLI) | payer MEDICARE, SELFPAY ==
[2024-03-27 11:11] LABS: Basophils # 0.1 K/mm3 (0-0.2); Basophils % 0.5 % (0.1-2.0); Eosinophils # 0.2 K/mm3 (0.0-0.4); Eosinophils % 1.5 % (0.1-12.0); Hematocrit 36.8 % (42.0-52.0); Hemoglobin 11.9 g/dL (14.1-18.0); Lymphocytes # 3.3 K/mm3 (0.7-4.5); Lymphocytes % 33.2 % (10-50); Mean Corpuscular HGB Conc 32.3 g/dL (31.8-35.4); Mean Corpuscular Hemoglobin 29.2 pg (27.0-31.2); Mean Corpuscular Volume 90.2 fl (80-94); Monocytes # 0.5 K/mm3 (0.1-1.0); Monocytes % 5.5 % (1.7-9.3); Neutrophils # 5.8 K/mm3 (1.8-7.8); Neutrophils % 59.1 % (37.0-80.0); Platelet Count 202 K/mm3 (142-424); Red Blood Count 4.08 M/mm3 (4.60-6.20); Red Cell Distribution Width 14.6 % (11.5-17.5); White Blood Count 9.8 K/mm3 (4.8-10.8)
[2024-03-27 12:06] LABS: Alanine Aminotransferase 19 U/L (12-78); Albumin Level 4.4 g/dl (3.5-5.0); Albumin/Globulin Ratio 1.5 (1.1-1.8); Alkaline Phosphatase 112 U/L (38-126); Anion Gap 13.5 mEq/L (5-15); Aspartate Amino Transferase 20 U/L (17-59); Bilirubin,Total 0.5 mg/dl (0.2-1.3); Blood Urea Nitrogen 14 mg/dl (9-20); Carbon Dioxide 29 mmol/L (22.0-30.0); Chloride 103 mmol/L (98-107); Estimated Glomerular Filt Rate 55 ml/min (>60); GFR (African American) 67 ML/MIN (>60); Glucose 126 mg/dl (74-100); Potassium 4.5 mmoL/L (3.5-5.1); Sodium 141 mmol/L (136-145); Total Protein,Serum 7.4 g/dl (6.3-8.2)
[2024-04-05 06:10] LABS: Interpretation: NEGATIVE; e13a2 (b2a2) transcript <0.0032%; e14a2 (b3a2) transcript <0.0032%; e1a2 transcript <0.0032%
[2024-04-05 06:12] LABS: PDF: SCANNED IMAGE
== END 2024-03-27 23:59 | disposition home or self-care (01) ==
LOC: LAB 10:53
PROVIDERS: PCP Internal Medicine; Visit Provider Internal Medicine Medical Oncology
DX: C92.10 Chronic myeloid leukemia, BCR/ABL-positive, not having achieved remission (principal); Z79.83 Long term (current) use of bisphosphonates
CPT/HCPCS: 36415; 80053; 81206; 85025

== ENCOUNTER 2024-09-24 11:36 | Outpatient (CLI) | payer MEDICARE, SELFPAY ==
--- OUTSIDE RECORDS SUMMARY | 2024-09-24 11:38 | XMS_ITS | Encounter Summary ---
Author Organization Healthcare Address [address] [place] [address] Care Team Providers Care Butcher Helper Name Role Phone Sulaiman Beach MD Primary Care Provider [phone] Brent Benítez MD Unavailable [phone] Reason for Visit * Reason Comments Med Refill Encounter Details Date Type Department Care Team (Late st Contact Info) Description 03/30/2021 Refill [facility] Hematology/BMT and Cellular Therapy Program [address] [phone] Brent Benítez MD [facility] [address] [place] [phone] Social History Tobacco Use Types Packs/Day Years Used Date Smoking Tobacco: Former Smokeless Tobacco: Never Alcohol Use Standard Drinks/Week Comments Yes 0 (1 standard drink = 0.6 oz pure alcohol) Alcoholic Drinks/day: Occasional alcohol use Sex and Gender Information Value Date Recorded Sex Assigned at Not on file Legal Sex Male 8:29 PM EDT Gender Identity Not on file Sexual Orientation Not on file documented as of this encounter Plan of Treatment Not on file documented as of this encounter Visit Diagnoses Not on filedocumented in this encounter Additional Health Concerns Assessment Noted Time A fall risk assessment has been complete d for the patient 01/19/2021 10:42 AM EST documented as of this encounter Care Teams Butcher Helper Relationship Specialty Start Date End Date Sulaiman Beach MD [address] [place] [address] PCP - General 07/23/20 Brent Benítez MD [facility] [address] [phone] Consulting Physician Hematology and Oncology 01/19/21 documented as of this encounter
--- OUTSIDE RECORDS SUMMARY | 2024-09-24 11:38 | XMS_ITS | Clinical Summary ---
Author Organization [facility] Address [address] [place] [address] Phone Care Team Providers Care Claim Analyst Name Role Phone Javi VELASQUEZ, Toby Elliott [ ] Conditions or Problems Problem Name Problem Code Onset Date Status Entry Date Provider Comment Standard Description Annotate TOBACCO ABUSE 17631499 (SNOMED CT) 11/20 Active 11/20 Toby Caldwell MD Tobacco dependence syndrome PYELONEPHRIT IS 98569852 (SNOMED CT) 11/19 Active 11/19 Keren Ralph Pyelonephritis MSSA BACTEREMIA R78.81 (ICD-10-CM ) 11/19 Active 11/19 Keren Ralph Bacteremia MSSA INFECTION 304590799 (SNOMED CT) 11/19 Active 11/19 Keren Ralph Infection by methicillin sensitive Staphylococcus aureus STREP GROUP D ENTEROCOCCUS INFECTION B95.4 (ICD-10-CM ) 11/19 Active 11/19 Keren Ralph Other streptococcus as the cause of diseases classified elsewhere MSSA/ENTEROC OCCAL UTI N39.0 (ICD-10-CM ) 11/05 Active 11/05 Keren Ralph Urinary tract infection, site not specified History of TIRSO FUNGEMIA unknown 11/05 Active 11/05 Keren Ralph unknown CHRONIC RENAL INSUFFICIENC Y 69217696 (SNOMED CT) 11/05 Active 11/05 Keren Ralph Chronic renal failure FEVER 594875627 (SNOMED CT) 11/05 Resolved 11/05 Keren Ralph Fever LEUKOCYTOSIS 638037721 (SNOMED CT) 11/05 Inactive 11/05 Keren Ralph Leukocytosis DISSEMINATED CANDIDIASIS 24856781 (SNOMED CT) 11/05 Inactive 11/05 Keren Rosas Invasive candidiasis HYPERTENSION 75397272 (SNOMED CT) 11/05 Inactive 11/05 Keren Ralph Hypertensive disorder HYPOKALEMIA 20990658 (SNOMED CT) 11/05 Inactive 11/05 Keren Ralph Hypokalemia TIRSO FUNGEMIA B49 (ICD-10-CM ) 11/05 Correction 11/05 Keren Rosas Unspecified mycosis TIRSO UTI 112.2 (ICD-9-CM) 11/05 Correction 11/05 Keren Rosas Candidiasis of other urogenital sites TIRSO UTI N39.0 (ICD-10-CM ) 11/05 Correction 11/05 Keren Rosas Urinary tract infection, site not specified DISSEMINATED CANDIDIASIS 15918062 (SNOMED CT) 11/05 Removed 11/05 Keren Rosas Invasive candidiasis FUNGEMIA 018995633 (SNOMED CT) 11/05 Correction 11/05 Keren Rosas Fungemia NEPHROLITHIA SIS 33295689 (SNOMED CT) 11/05 Active 11/05 Keren Rosas Kidney stone LEUKOCYTOSIS 305992644 (SNOMED CT) 11/05 Removed 11/05 Keren Rosas Leukocytosis FEVER 468768804 (SNOMED CT) 11/05 Removed 11/05 Keren Rosas Fever ACUTE RENAL FAILURE 32849971 (SNOMED CT) 11/05 Correction 11/05 Keren Rosas Acute kidney injury HYPERTENSION 05548115 (SNOMED CT) 11/05 Removed 11/05 Keren Rosas Hypertensive disorder HYPOKALEMIA 65394228 (SNOMED CT) 11/05 Removed 11/05 Keren Ralph Hypokalemia OBESITY 054366579 (SNOMED CT) 11/05 Active 11/05 Keren Rosas Obesity Medications Medication Instructions Start Date Stop Date Generic Name NDC Provider BACTRIM DS 800-160 MG TABS 1 tab PO QD 0 SULFAMETHOXAZOLE- TRIMETHOPRIM 53542263019 Toby Caldwell MD CUBICIN SOLUTION RECONSTITUTED 750 mg IV Q 24 HOME HEALTH 11/20 DAPTOMYCIN SOLR 33754575755 Toby Caldwell MD CUBICIN SOLUTION RECONSTITUTED 750 mg IV Q 24 HOME HEALTH 11/21 DAPTOMYCIN SOLR [id number] Liz Shaikh RN DILAUDID 4 MG TABS HYDROMORPHONE HCL 70782722612 Navin Youngblood FLUCONAZOLE IN DEXTROSE 400 MG/200ML INTRAVENOUS SOLUTION FLUCONAZOLE IN DEXTROSE 28310299401 Navin Youngblood BROMO-SELTZER 650-2.67-3.5 MG-GM-GM PACK APAP-SODIUM BICARBONATE-CIT AC 92128683176 Navin Youngblood FLOMAX 0.4 MG ORAL CAPSULE TAMSULOSIN HCL 05741893527 Navin Youngblood SINGULAIR 10 MG TABS MONTELUKAST SODIUM 69186532838 Navin Youngblood LEVOCETIRIZINE DIHYDROCHLORIDE 5 MG TABS LEVOCETIRIZINE DIHYDROCHLORIDE 22463984486 Navin Youngblood LISINOPRIL-HYDROCH LOROTHIAZIDE 10-12.5 MG TABS LISINOPRIL-HYDROC HLOROTHIAZIDE 50710474643 Navin Youngblood ADVAIR HFA AERO FLUTICASONE-SALME TEROL AERO 30295653737 Navin Youngblood ALLOPURINOL 300 MG TABS twice a day ALLOPURINOL 98040113096 Navin Youngblood COMBIVENT AEROSOL IPRATROPIUM-ALBUT GRACIE AERO 03057748470 Navin Youngblood Medications Administered No information available. [...] in Urine PROTEIN, URN Negative Negative N protei n, urine, semiquantitative (dipstick) BLOOD UR Negative Negative N BLOOD, URI [...] Procedures Code Procedure Name Date Entry Date CPT-72912 CMP CPT-79442 CBC with Differential CPT-67236 Sedimentation Rate (ESR) 201 04/21/08 CPT-54434 C- reactive protein CPT-18088 Urine Culture & Sensitivity CPT-35327 Urinalysis CPT-ortega New Oral Antibiotic CPT-99465 Urine Culture & Sensitivity CPT-09472 Urinalysis Vital Signs Date Name Value Unit [...] Weight Measured 316.4 [lb_av] weight E& M Weight Measured 316.4 [lb_av] weight E& M Immunizations No information available. Advance Directives No information available.
--- OUTSIDE RECORDS SUMMARY | 2024-09-24 11:38 | XMS_ITS ---
Author Organization Unknown Medications Medication Instructions Effective Dates (start - stop) Status nicotine 4 MG Chewing Gum 2021-03:00:00.000+00:0 0 - Completed levofloxacin 750 MG Oral Tablet 4607-40-69B52:00:00.000+00:0 0 - Completed bosutinib 400 MG Oral Tablet [Bosulif] 7040-55-18H23:00:00.000+00:0 0 - Completed bosutinib 400 MG Oral Tablet [Bosulif] 7404-12-44V38:00:00.000+00:0 0 - Completed bosutinib 400 MG Oral Tablet [Bosulif] 0496-03-41T76:00:00.000+00:0 0 - Completed bosutinib 400 MG Oral Tablet [Bosulif] 8022-39-20C97:00:00.000+00:0 0 - Completed rosuvastatin calcium 40 MG O ral Tablet 5566-06-07X75:00:00.000+00:0 0 - Completed bosutinib 400 MG Oral Tablet [Bosulif] 9359-95-05A67:00:00.000+00:0 0 - Completed atorvastatin 20 MG Oral Tablet 917-04-90V68:00:00.000+00:0 0 - Completed bosutinib 400 MG Oral Tablet [Bosulif] 3686-98-16U12:00:00.000+00:0 0 - Completed rosuvastatin calcium 40 MG O ral Tablet 6754-23-96I97:00:00.000+00:0 0 - Completed bosutinib 400 MG Oral Tablet [Bosulif] 8814-81-02C82:00:00.000+00:0 0 - Completed bosutinib 400 MG Oral Tablet [Bosulif] 6869-80-02T65:00:00.000+00:0 0 - Completed rosuvastatin calcium 40 MG O ral Tablet 4970-43-43P13:00:00.000+00:0 0 - Completed bosutinib 400 MG Oral Tablet [Bosulif] 4258-66-68C77:00:00.000+00:0 0 - Completed bosutinib 400 MG Oral Tablet [Bosulif] 9824-34-16N70:00:00.000+00:0 0 - Completed tamsulosin hydrochloride 0.4 MG Oral Capsule 3048-80-51C05:00:00.000+00:0 0 - Completed bosutinib 400 MG Oral Tablet [Bosulif] 5552-74-87U21:00:00.000+00:0 0 - Completed losartan potassium 100 MG Or al Tablet 2124-95-68Q93:00:00.000+00:0 0 - Completed rosuvastatin calcium 40 MG O ral Tablet 5739-14-30D08:00:00.000+00:0 0 - Completed montelukast 10 MG Oral Tablet 31-12-28:00:00.000+00:0 0 - Completed montelukast 10 MG Oral Tablet 04-05-00:00:00.000+00:0 0 - Completed losartan potassium 100 MG Or al Tablet 1070-19-85K45:00:00.000+00:0 0 - Completed metformin hydrochloride 1000 MG Oral Tablet 4080-69-39J26:00:00.000+00:0 0 - Completed montelukast 10 MG Oral Tablet 02-03-05:00:00.000+00:0 0 - Completed levofloxacin 500 MG Oral Tablet 5574-53-42V38:00:00.000+00:0 0 - Completed prednisone 10 MG Oral Tablet 04-19-07:00:00.000+00:0 0 - Completed montelukast 10 MG Oral Tablet 31-12-04:00:00.000+00:0 0 - Completed metformin hydrochloride 1000 MG Oral Tablet 2567-42-72O47:00:00.000+00:0 0 - Completed montelukast 10 MG Oral Tablet 01-08-00:00:00.000+00:0 0 - Completed montelukast 10 MG Oral Tablet 03-04-03:00:00.000+00:0 0 - Completed rosuvastatin calcium 40 MG O ral Tablet 9028-97-52A53:00:00.000+00:0 0 - Completed montelukast 10 MG Oral Tablet 31-10-10:00:00.000+00:0 0 - Completed losartan potassium 100 MG Or al Tablet 8797-66-00A20:00:00.000+00:0 0 - Completed losartan potassium 100 MG Or al Tablet 9436-05-73G25:00:00.000+00:0 0 - Completed levocetirizine dihydrochlori de 5 MG Oral Tablet 2173-02-41Q27:00:00.000+00:0 0 - Completed losartan potassium 100 MG Or al Tablet 3552-42-90E98:00:00.000+00:0 0 - Completed metformin hydrochloride 1000 MG Oral Tablet 7353-83-35K13:00:00.000+00:0 0 - Completed atropine sulfate 10 MG/ML Ophthalmic Solution 5437-21-70B75:00:00.000+00:0 0 - Completed levocetirizine dihydrochlori de 5 MG Oral Tablet 7390-08-38Y86:00:00.000+00:0 0 - Completed amlodipine 5 MG Oral Tablet 2022:00:00.000+00:0 0 - Completed levocetirizine dihydrochlori de 5 MG Oral Tablet 3365-54-25J07:00:00.000+00:0 0 - Completed amoxicillin 500 MG Oral Capsule 0551-58-25P00:00:00.000+00:0 0 - Completed tamsulosin hydrochloride 0.4 MG Oral Capsule 9559-47-79Q69:00:00.000+00:0 0 - Completed allopurinol 300 MG Oral Tablet 914-07-09P18:00:00.000+00:0 0 - Completed tamsulosin hydrochloride 0.4 MG Oral Capsule 9977-38-81N99:00:00.000+00:0 0 - Completed erythromycin 0.005 MG/MG Ophthalmic Ointment 9360-55-28D04:00:00.000+00:0 0 - Completed 24 HR metoprolol succinate 5 0 MG Extended Release Oral Tablet 8831-71-00B35:00:00.000+0 0:0 0 - Completed 24 HR metoprolol succinate 5 0 MG Extended Release Oral Tablet 1799-83-91P25:00:00.000+0 0:0 0 - Completed 24 HR metoprolol succinate 5 0 MG Extended Release Oral Tablet 2426-16-56H42:00:00.000+0 0:0 0 - Completed tamsulosin hydrochloride 0.4 MG Oral Capsule 4028-46-57O70:00:00.000+00:0 0 - Completed - 7914-13-39Y25:00 :00.000+00:0 0 - Completed amlodipine 5 MG Oral Tablet 2022:00:00.000+00:0 0 - Completed 24 HR metoprolol succinate 5 0 MG Extended Release Oral Tablet 0831-05-54Q12:00:00.000+0 0:0 0 - Completed allopurinol 300 MG Oral Tablet 2 900-53-56T26:00:00.000+00:0 0 - Completed metformin hydrochloride 1000 MG Oral Tablet 0946-68-83H68:00:00.000+00:0 0 - Completed allopurinol 300 MG Oral Tablet 209-97-06I31:00:00.000+00:0 0 - Completed 60 ACTUAT fluticasone propio tiffani 0.5 MG/ACTUAT / salmeterol 0.05 MG/ACTUAT Dry Powder Inhaler [Advair] 7572-99-34F47:00:00.000+00:0 0 - Completed 60 ACTUAT fluticasone propio tiffani 0.5 MG/ACTUAT / salmeterol 0.05 MG/ACTUAT Dry Powder Inhaler [Advair] 1359-86-58Q43:00:00.000+00:0 0 - Completed 60 ACTUAT fluticasone propio tiffani 0.5 MG/ACTUAT / salmeterol 0.05 MG/ACTUAT Dry Powder Inhaler [Advair] 3251-64-29B14:00:00.000+00:0 0 - Completed 60 ACTUAT fluticasone propio tiffani 0.5 MG/ACTUAT / salmeterol 0.05 MG/ACTUAT Dry Powder Inhaler [Advair] 5302-22-93P24:00:00.000+00:0 0 - Completed 120 ACTUAT albuterol 0.1 MG/ ACTUAT / ipratropium bromide 0.02 MG/ACTUAT Inhalation [place] [Combivent] 9637-68-96H40:00:00.000+00:0 0 - Completed 60 ACTUAT fluticasone propio tiffani 0.5 MG/ACTUAT / salmeterol 0.05 MG/ACTUAT Dry Powder Inhaler [Advair] 3554-77-94O35:00:00.000+00:0 0 - Completed 120 ACTUAT albuterol 0.1 MG/ ACTUAT / ipratropium bromide 0.02 MG/ACTUAT Inhalation [place] [Combivent] 1914-52-21M69:00:00.000+00:0 0 - Completed 120 ACTUAT albuterol 0.1 MG/ ACTUAT / ipratropium bromide 0.02 MG/ACTUAT Inhalation [place] [Combivent] 0388-91-34X80:00:00.000+00:0 0 - Completed 60 ACTUAT fluticasone propio tiffani 0.5 MG/ACTUAT / salmeterol 0.05 MG/ACTUAT Dry Powder Inhaler [Advair] 2219-73-05N51:00:00.000+00:0 0 - Completed 120 ACTUAT albuterol 0.1 MG/ ACTUAT / ipratropium bromide 0.02 MG/ACTUAT Inhalation [place] [Combivent] 0699-46-81I66:00:00.000+00:0 0 - Completed 120 ACTUAT albuterol 0.1 MG/ ACTUAT / ipratropium bromide 0.02 MG/ACTUAT Inhalation [place] [Combivent] 0006-86-03V80:00:00.000+00:0 0 - Completed 120 ACTUAT albuterol 0.1 MG/ ACTUAT / ipratropium bromide 0.02 MG/ACTUAT Inhalation [place] [Combivent] 3717-47-98H54:00:00.000+00:0 0 - Completed 60 ACTUAT fluticasone propio tiffani 0.5 MG/ACTUAT / salmeterol 0.05 MG/ACTUAT Dry Powder Inhaler [Advair] 6572-18-53A62:00:00.000+00:0 0 - Completed 60 ACTUAT fluticasone propio tiffani 0.5 MG/ACTUAT / salmeterol 0.05 MG/ACTUAT Dry Powder Inhaler [Advair] 4048-39-81H99:00:00.000+00:0 0 - Completed 60 ACTUAT fluticasone propio tiffani 0.5 MG/ACTUAT / salmeterol 0.05 MG/ACTUAT Dry Powder Inhaler [Advair] 3289-63-63Q89:00:00.000+00:0 0 - Completed 120 ACTUAT albuterol 0.1 MG/ ACTUAT / ipratropium bromide 0.02 MG/ACTUAT Inhalation [place] [Combivent] 0723-89-04Y05:00:00.000+00:0 0 - Completed 120 ACTUAT albuterol 0.1 MG/ ACTUAT / ipratropium bromide 0.02 MG/ACTUAT Inhalation [place] [Combivent] 1760-71-81Q03:00:00.000+00:0 0 - Completed 60 ACTUAT fluticasone propio tiffani 0.5 MG/ACTUAT / salmeterol 0.05 MG/ACTUAT Dry Powder Inhaler [Advair] 4660-94-17F23:00:00.000+00:0 0 - Completed 120 ACTUAT albuterol 0.1 MG/ ACTUAT / ipratropium bromide 0.02 MG/ACTUAT Inhalation [place] [Combivent] 0973-35-43E59:00:00.000+00:0 0 - Completed 120 ACTUAT albuterol 0.1 MG/ ACTUAT / ipratropium bromide 0.02 MG/ACTUAT Inhalation [place] [Combivent] 3271-54-09P24:00:00.000+00:0 0 - Completed 120 ACTUAT albuterol 0.1 MG/ ACTUAT / ipratropium bromide 0.02 MG/ACTUAT Inhalation [place] [Combivent] 2387-16-18S11:00:00.000+00:0 0 - Completed 120 ACTUAT albuterol 0.1 MG/ ACTUAT / ipratropium bromide 0.02 MG/ACTUAT Inhalation [place] [Combivent] 1019-48-78F99:00:00.000+00:0 0 - Completed 120 ACTUAT albuterol 0.1 MG/ ACTUAT / ipratropium bromide 0.02 MG/ACTUAT Inhalation [place] [Combivent] 5899-26-01P43:00:00.000+00:0 0 - Completed 60 ACTUAT fluticasone propio tiffani 0.5 MG/ACTUAT / salmeterol 0.05 MG/ACTUAT Dry Powder Inhaler [Advair] 2921-94-24W25:00:00.000+00:0 0 - Completed acetaminophen 325 MG / oxyco done hydrochloride 5 MG Oral Tablet 5854-82-77C94:00:00.000 +00:0 0 - Completed 120 ACTUAT albuterol 0.1 MG/ ACTUAT / ipratropium bromide 0.02 MG/ACTUAT Inhalation [place] [Combivent] 0934-51-16Y64:00:00.000+00:0 0 - Completed 60 ACTUAT fluticasone propio tiffani 0.5 MG/ACTUAT / salmeterol 0.05 MG/ACTUAT Dry Powder Inhaler [Advair] 4919-83-23Z26:00:00.000+00:0 0 - Completed Patient Care team information Name Category Status Period Participants - - Proposed period not known -
--- OUTSIDE RECORDS SUMMARY | 2024-09-24 11:38 | XMS_ITS | Clinical Summary ---
Author Organization [employer] ([place], [place], [place], [place]) Address [address] [place] [address] Care Team Providers Care Therapeutic Case Manager Name Role Phone Shane Beacht Primary Care Provider [phone] Allergies No known active allergies Social History Tobacco Use Types Packs/Day Years Used Date Smoking Tobacco: Never Assessed Food Insecurity Answer Date Recorded Food run out past 12 months Not on file 03/12 Food did not last past 12 months Not on file 03/30/2023 Employment Answer Date Recorded Help finding and keeping a job Not on file 0 03/30/2023 Family and Community Support Answer Marshall e Recorded Help with Day to Day Activities Not on file 03/30/2023 Feeling Lonely or Isolated Not on file 03/30 Educational Attainment Answer Date Calos rded Speak language other than Venezuelan at home Not on file 03/30/2023 Want help with school or training Not on file 03/30/2023 Substance Use Answer Date Recorded Used prescription meds for non-medical reasons N ot on file 03/30/2023 Used illegal drugs past 12 months Not on file 03/30/2023 Sex and Gender Information Value Date Recorded Sex Assigned at Not on file Legal Sex Male 3:34 PM CDT Gender Identity Not on file Sexual Orientation Not on file Plan of Treatment Health Maintenance Due Date Last Done Comments CT Colonography 1958 Colonoscopy 1958 Colorectal Cancer Screening 1958 FOBT/FIT 1958 Fit-DNA (Cologuard) 1958 Sigmoidoscopy 1958 Depression Screening (12+) 1970 Tobacco Cessation Counseling and Screening (12+) 05/15 Hepatitis C Screening 1976 DTAP/TDAP/TD VACCINES (1 - Tdap) 1977 Pneumococcal 50+ years (1 of 1 - PCV) 2008 Shingles Vaccine (Zoster) (1 of 2) 2008 COVID-19 VACCINE (1 - 2023- season) 2023 Falls Risk Screening 03/12/2024 Influenza Vaccine (#1) 2024 02/12/2017 Respiratory Syncytial Virus (RSV) Adult or (1 - 1-dose 75+ series) 2033 Insurance BLUE CROSS/BLUE SHIELD Care Teams Therapeutic Case Manager Relationship Specialty Start Date End Date Sulaiman Beach [address] [place] [phone] PCP - General 05/17/22
--- OUTSIDE RECORDS SUMMARY | 2024-09-24 11:38 | XMS_ITS | Encounter Summary ---
Author Organization Healthcare Address [address] [place] [address] Care Team Providers Care Gear Grinder Name Role Phone Sulaiman Beach MD Primary Care Provider [phone] Brent Benítez MD Unavailable [phone] Reason for Visit * Reason Comments Med Refill Encounter Details Date Type Department Care Team (Late st Contact Info) Description 11/06/2022 Refill [facility] Hematology/BMT and Cellular Therapy Program [address] [phone] Brent Benítez MD [address] [facility] [address] [place] [phone] Social History Tobacco Use Types Packs/Day Years Used Date Smoking Tobacco: Former Smokeless Tobacco: Never Alcohol Use Standard Drinks/Week Comments Yes 0 (1 standard drink = 0.6 oz pure alcohol) Alcoholic Drinks/day: Occasional alcohol use PHQ-2 Answer Date Recorded Patient Health Questionnaire-2 Score 0 08/14/2022 PHQ-2A Answer Date Recorded Patient Health Questionnaire-2 Score 0 08/14/2022 Sex and Gender Information Value Date Recorded [...] has been complete d for the patient 08/14/2022 2:12 PM EDT documented as of this encounter Care Teams Gear Grinder Relationship Specialty Start Date End Date Sulaiman Beach MD [address] [facility] [address] [place] [address] PCP - General 07/23/20 Brent Benítez MD 800 [facility] [address] [phone] Consulting Physician Hematology and Oncology 01/19/21 documented as of this encounter
--- OUTSIDE RECORDS SUMMARY | 2024-09-24 11:38 | XMS_ITS | Referral Summary ---
Author Organization [employer] ([place], [place], [place], [place]) Address [address] [place] [address] Care Team Providers Care Theatre Program Director Name Role Phone Sulaiman Beach Primary Care Provider Allergies No known active allergies Social History [...] Date Calos rded Speak language other than French at home Not on file 03/30/2023 Want [...] Orientation Not on file Plan of Treatment Not on file Insurance BLUE CROSS/BLUE SHIELD Care Teams Theatre Program Director Relationship Specialty Start Date End Date Sulaiman Beach [address] [place] [phone] PCP - General 05/17/22
--- OUTSIDE RECORDS SUMMARY | 2024-09-24 11:38 | XMS_ITS | Encounter Summary ---
Author Organization [employer] ([place], [place], [place], [place]) Address [address] [place] [address] Care Team Providers Care Balance Truer Name Role Phone Stepan Beachght Primary Care Provider [phone] Reason for Referral * MRI (Routine) - Closed Specialty Diagnoses / Procedures Referred By Contac t Referred To Contact Radiology Diagnoses Elevated prostate specific antigen (PSA) Procedures MR prostate without & with IV contrast Amol Costa MD [address] [place] [address] Phone: tel: fax: Referral ID Status Reason Start Date Expiration Date Visits Re quested Visits Authorized [id number] Closed 05/10/2022 11/06/2022 1 1 Encounter Details Date Type Department Care Team (Late st Contact Info) Description 05/10/2022 Outside Orders [facility] Central Scheduling [address] [place] [address] Amol Costa MD [address] [place] [address] Elevated prostate specific antigen (PSA) (Primary Dx) Social History Tobacco Use Types Packs/Day Years Used Date Smoking Tobacco: Never Assessed Sex and Gender Information Value Date Recorded Sex Assigned at Not on file Legal Sex Male 3:34 PM CDT Gender Identity Not on file Sexual Orientation Not on file documented as of this encounter Plan of Treatment Not on file documented as of this encounter Results * MR prostate without & with IV contrast (05/17/2022 9:34 AM EST) Anatomical Region Laterality Modality Magnetic Resonan ce (MRI) 05/18/2022 11:5 1 AM EST Impressions 05/18/2022 11:57 AM EST Enlarged prostate with BPH. Several small indeterminate foci in the transition zone bilaterally. PI-RADS 3 - Intermediate (the presence of clinically significant cancer is equivocal). Images reviewed, interpreted, and dictated by Issac Lemus MD Narrative 05/18/2022 11:57 AM EST MR PELVIS WITHOUT AND WITH CONTRAST HISTORY: Elevated PSA COMPARISON: None FINDINGS: Multiplanar MR imaging of the pelvis was performed without and with contrast using the prostate MRI protocol. The images were reviewed on the [employer] workstation. The prostate measures 6.3 x 6.1 x 5.1 cm. This corresponds to a volume of 98 cc. PERIPHERAL ZONE: The peripheral zone is effaced secondary to the enlarged transition zone. No area of significant restricted diffusion is seen within the peripheral zone. TRANSITION ZONE: The transition zone is enlarged and nodular consistent with BPH. A 7 x 5 mm focus of decreased T2 signal is seen in the right transition zone at the mid gland which shows significant restricted diffusion. A second focus of decreased T2 signal in the more posterior medial right transition zone is seen measuring 5 x 3 mm with significant restricted diffusion. In addition, there is a 7 x 5 mm decreased T2 signal focus in the anterior left transition zone at the base which shows significant restricted diffusion. These are consistent with PI-RADS 3 lesions and were localized on the [employer] CAD software. On the postcontrast images, areas of bilateral abnormal contrast kinetics are seen left greater than right as a nonspecific finding. Review of the remainder of the pelvis reveals no evidence of mass or adenopathy. No abnormal fluid collection is seen. Procedure Note Issac Lemus MD - 05/18/2022 MR PELVIS WITHOUT AND WITH CONTRAST HISTORY: Elevated PSA COMPARISON: None FINDINGS: Multiplanar MR imaging of the pelvis was performed without and with contrast using the prostate MRI protocol. The images were reviewed on the [employer] workstation. The prostate measures 6.3 x 6.1 x 5.1 cm. This corresponds to a volume of 98 cc. PERIPHERAL ZONE: The peripheral zone is effaced secondary to the enlarged transition zone. No area of significant restricted diffusion is seen within the peripheral zone. TRANSITION ZONE: The transition zone is enlarged and nodular consistent with BPH. A 7 x 5 mm focus of decreased T2 signal is seen in the right transition zone at the mid gland which shows significant restricted diffusion. A second focus of decreased T2 signal in the more posterior medial right transition zone is seen measuring 5 x 3 mm with significant restricted diffusion. In addition, there is a 7 x 5 mm decreased T2 signal focus in the anterior left transition zone at the base which shows significant restricted diffusion. These are consistent with PI-RADS 3 lesions and were localized on the [employer] CAD software. On the postcontrast images, areas of bilateral abnormal contrast kinetics are seen left greater than right as a nonspecific finding. Review of the remainder of the pelvis reveals no evidence of mass or adenopathy. No abnormal fluid collection is seen. IMPRESSION: Enlarged prostate with BPH. Several small indeterminate foci in the transition zone bilaterally. PI-RADS 3 - Intermediate (the presence of clinically significant cancer is equivocal). Images reviewed, interpreted, and dictated by Issac Lemus MD us Amol Costa MD IMG MRI ORDERABLES Final Re sult documented in this encounter Visit Diagnoses Diagnosis Elevated prostate specific antigen (PSA)- Primary Elevated prostate specific antigen (PSA) documented in this encounter Care Teams Balance Truer Relationship Specialty Start Date End Date Sulaiman Beach [address] [place] [phone] PCP - General 05/17/22 documented as of this encounter
--- OUTSIDE RECORDS SUMMARY | 2024-09-24 11:38 | XMS_ITS | Clinical Summary ---
Author Organization [facility] Address [address] [place] [address] Care Team Providers Care Upholstery Cleaner Name Role Phone Sulaiman Beach MD Primary Care Provider [phone] Brent Benítez MD Unavailable [phone] Allergies Active Allergy Reactions Criticality Noted Date Comments Jae Inhibitors Anaphylaxis,Unknow n - Patient states they do not know rxn details High 10/23/2016 [facility] at [facility] Hydrochlorothiazide Unknown - Patient states they do not know rxn details Low 10/23/2016 Lisinopril-Hydrochlorothiaz amanda Anaphylaxis High 11/01/2016 [facility] at [facility] and [facility]B Sulfa Drugs Anaphylaxis High 10/18/2020 Sulfacetamide Anaphylaxis,Unknow n - Patient states they do not know rxn details High 10/24/2016 [facility] at [facility] and [facility]pi for [facility]B Medications acetaminophen (Tylenol) 325 MG tablet 7 Active Docusate Sodium (DSS) 100 MG capsule 7 Active fluticasone-salm eterol (Advair Diskus) 500-50 MCG/DOSE diskus inhaler Inhale 1 puff 1 (one) time each day if needed. 7 Active furosemide (Lasix) 20 MG tablet Take 1 tablet (20 mg) by mouth 1 (one) time each day if needed. 7 Active HYDROcodone-acet aminophen (Roxana) 5-325 MG tablet TAKE 1 TABLET EVERY 4 TO 6 HOURS NEEDED FOR PAIN. 7 Active levocetirizine (Xyzal) 5 MG tablet TAKE 1 TABLET DAILY. 7 Active montelukast (Singulair) 10 MG tablet 1 (one) time each day. 7 Active oxybutynin (Ditropan) 5 MG tablet 1 Active tamsulosin (Flomax) 0.4 MG 24 hr capsule Take 1 capsule (0.4 mg) by mouth 1 (one) time each day. 7 Active allopurinol (Zyloprim) 300 MG tablet Take 1 tablet (300 mg) by mouth 2 (two) times a day. 2 Active rosuvastatin (Crestor) 40 MG tablet Take 1 tablet (40 mg total) by mouth 1 (one) time each day. 30 tablet 11 2 Active ipratropium-albu terol (Combivent Respimat) 20-100 MCG/ACT inhaler Inhale 1 puff 4 (four) times a day. Take as needed. 7 Active amLODIPine (Norvasc) 5 MG tablet Take 1 tablet (5 mg) by mouth 1 (one) time each day. 3 Active fluticasone (Flonase) 50 MCG/ACT nasal spray 2 Active metFORMIN (Glucophage) 1000 MG tablet Take 1 tablet (1,000 mg) by mouth 2 (two) times a day with meals. 3 Active sodium bicarbonate 650 MG tablet sodium bicarbonate 650 mg tablet TAKE ONE TABLET BY MOUTH TWICE A DAY 7 Active losartan (Cozaar) 100 MG tablet Take 1 tablet (100 mg) by mouth 1 (one) time each day. 3 Active metoprolol succinate XL (Toprol-XL) 50 MG 24 hr tablet Take 1 tablet (50 mg) by mouth 1 (one) time each day. 3 Active sildenafil (Viagra) 100 MG tablet TAKE 1/2 TO 1 TABLET BY MOUTH DAILY NEEDED DIRECTED Rfs rem 01 BEFORE 03/01/16 Active nicotine polacrilex (Nicorette) 4 MG gum Chew 1 each (4 mg) if needed for smoking cessation. 100 each 3 3 Active Bosutinib (Bosulif) 400 MG tablet TAKE 1 TABLET (400 MG) DAILY 30 tablet 1 4 Active Active Problems Problem Noted Date Diagnosed Date Tobacco use disorder 11/22/2022 Second hand smoke exposure 11/22/2022 Severe obesity (BMI 35.0-39.9) with comorbidity 04/26/2021 Sleep apnea in adult 09/03/2017 Overview (08/14/2022): Sleep apnea, unspecified Hypertension 09/03/2017 Overview (08/14/2022): Essential (primary) hypertension COPD (chronic obstructive pulmonary disease) Overview (08/14/2022): Chronic obstructive pulmonary disease, unspecified CML (chronic myelocytic leukemia) 09/03/2017 Overview (08/14/2022): Chronic myeloid leukemia, BCR/ABL-positive, not having achieved remission Pericardial effusion 10/23/2016 Diabetes mellitus, type 2 10/23/2016 Overview (08/14/2022): Type 2 diabetes mellitus without complications Resolved Problems Problem Noted Date Diagnosed Date Resolved Date Pleural effusion, right 10/25/201607/2022 Immunizations Immunization Administration Dates Next Due Influenza, injectable, quadrivalent, preservativ e free 02/12/2017 Moderna COVID-19 Vaccine (Children[employer]) 12+ years 05/2020,03/16/2020 Pneumococcal Polysaccharide PPV23 04/21/2015 Social History Tobacco Use Types Packs/Day Years Used Date Smoking Tobacco: Every Day Cigarettes 1 46.6 Started: 02/09/1978 Passive Smoke Exposure: Current Smokeless Tobacco: Never Tobacco Cessation:Ready to Q uit: Not Asked; Counseling Given: Not Answered Alcohol Use Standard Drinks/Week Comments Yes 0 [...] on file Sexual Orientation Not on file Last Filed Vital Signs Vital Sign Reading Time Taken Comments Blood Pressure 159/78 05/23/2023 1:20 PM EDT Pulse 66 05/23/2023 1:12 PM EDT Temperature 37 C (98.6 F) 05/23/2023 1:12 PM EDT Respiratory Rate 18 05/23/2023 1:12 PM EDT Oxygen Saturation 98% 05/23/2023 1:12 PM EDT Inhaled Oxygen Concentration - - Weight 127 kg (279 lb 12.2 oz) 05/23/2023 1:12 P M EDT Height 182.9 cm (6' 0.01 ) 05/23/2023 1:12 PM ED T Body Mass Index 37.93 05/23/2023 1:12 PM EDT Plan of Treatment Health Maintenance Due Date Last Done Comments [facility]-Hepatitis C Screening 1960 [facility]icare Annual Wellness (AWV) 1958 [facility]-Infant/Child/Adol SDOH Screenings 1958 [facility]-Obesity Intervention 1964 Diabetes: Dental Exam 1968 [facility]- SDOH Screenings 1976 [facility]-Adult SDOH Screenings 1976 [facility]-DTaP,Tdap,and Td Vaccine s (1 - Tdap) 1977 [facility]-Zoster Vaccines (1 of 2) 1977 CT Colonography 05/16/2003 Colonoscopy 05/16/2003 [facility]-DNA 05/16/2003 FIT 05/16/2003 FOBT 05/16/2003 Sigmoidoscopy 05/16/2003 [facility]-Colorectal Cancer Screening 05/16/2003 [facility]-Pneumococcal Vaccine: 50 + Years (2 of 2 - PCV) 04/21/2016 04/21/2015 [facility]-Diabetes: Hemoglobin A1C 04/30/2017 10/31/2016 [id number] Vaccine (3 - Moderna risk series) 05/12/2020 04/14/2020, 03/16/2020 [facility]-Depression Screening 08/15/2023 08/14/2022 [facility]-Influenza Vaccine (#1) 2024 02/12/2017 [facility]-RSV Vaccine: 60+ Years o r (1 - 1-dose 75+ series) 2033 HPV Vaccines Aged Out No longer eligi ble based on patient's age to complete this topic [facility]-HIB Vaccines Aged Out No longer e ligible based on patient's age to complete this topic [facility]-Hepatitis A Vaccines Aged Out No longer eligible based on patient's age to complete this topic [facility]-IPV Vaccines Aged Out No longer e ligible based on patient's age to complete this topic [facility]-Rotavirus Vaccines Aged Out No lo nger eligible based on patient's age to complete this topic Procedures Procedure Name Priority Date/Time Associated Diagnosis Comments HEMOGLOBIN A1C Routine 10/31/2016 7:59 PM EDT from Last 3 Months or Most Recently Relevant to Health Maintenance Results * Hemoglobin A1c (10/31/2016 7:59 PM EDT) Hemoglobin A1c 5.6 4.7 - 6.0 % [facility] Comment: (NOTE) Glycohemoglobin Reference Range, 0 years and up: 4.7 - 6.0% . Hemoglobin A1c values of 5.7 - 6.4% indicate an increased risk for developing diabetes mellitus (prediabetes). Hemoglobin A1c values greater than or equal to 6.5% are diagnostic of diabetes mellitus. . HbA1c assay performed by an ion-exchange chromatography method that is certified traceable to the DCCT. 10/31/2016 7:59 PM EDT 10/31/2016 8:14 PM EDT Scarlet Macias MD LAB BLOOD ORDERABLES Final Res ult [facility]QUEST from Last 3 Months or Most Recently Relevant to Health Maintenance Insurance [facility] MEDICARE Care Teams Upholstery Cleaner Relationship Specialty Start Date End Date Sulaiman Beach MD [facility] [place] [address] [place] [address] PCP - General 07/23/20 Brent Benítez MD [address] [place] [address] [phone] Consulting Physician Hematology and Oncology 01/19/21
--- OUTSIDE RECORDS SUMMARY | 2024-09-24 11:39 | XMS_ITS | Data Portability ---
Author Organization [facility] MARGARITA Flores MAHOMET CLOSED Address [address] [place] [address] Care Team Providers Care Peer Tutor Name Role Phone DESTINEE CRUZ Referring Provider [phone] Assessment No assessment recorded. Plan of Treatment Reminders Order Date Submit Date Provider Last Modified By Organization Details Last Modified Time Details Appointments None recorded. Lab surgical pathology study 2024 025 [facility], [address] [place] [address], [id number], 5 13:28:30 Referral None recorded. Procedures None recorded. Surgeries None recorded. Imaging None recorded. Medication Orders clobetasol 0.05 % topical ointment [address], [address], [address], [place], [address], 5 15:34:05 Patient TargetsNo targets recorded. Patient InstructionsNo instructions recorded. Reason for Referral None Reported. 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 AJCC: T1, Nx, Mx B: Left Dorsa l Hand - SQUAM OUS CELL CARCI NOMA Comme nt: The deep vanessa n is invol portillo with tumor . AJCC: T1, Nx, Mx SOURC E OF SPECI MEN: 1) SKIN, L 4TH MCP 2) SKIN, L DORSA L HAND CLINI LOS INFOR MATIO N: A: R/O: KA. B: R/O: PN VS SCC. Gross Descr iptio n: A: The speci men consi sted of multi ple (x2) begum fragm ents which measu red 28 x 12 x 3 [address] ag[address] gate. Seria lly secti oned (x5) the large r piece . Seria lly secti oned (x4) the small er piece . All tissu e submi tted in two casse ttes. B: The speci men consi sted of a begum fragm ent which was trise cted and measu red 9 x 7 x 2 mm. All submi tted in one casse tte. Micro scopi c Descr iptio n: A: Irreg ular islan ds and nests of cytol ogica lly atypi los kerat inizi ng epith elial cells infil trate the dermi s. B: Irreg ular islan ds and nests of cytol ogica lly atypi los kerat inizi ng epith elial cells infil trate the dermi s. XANDER CONNELL MD Cherise d Out Date: 04/24 13:27 1 Not Available [facility] [address] [facility] [facility], [place], [address], 04/24/2024 13:28:30 10/05/19 24 10/05/2023 XR, knee, 4 or more view Suhail stringer [facility] [place] [address] [place] [address] Conchita schmitz Name: MARIBEL CASTILLO Meagan Longtrinh nadir : [birth year] 57 Patitrinh t 3 Orderi ng Provid er: Marycruz FORREST АННА SON EXAM DATE: 2023 EXAM: XR RT KNEE COMPLE TE, 4 OR MORE VWS COMPAR JANELLE: 018 HISTOR Y: Right knee pain. FINDIN GS: No fractu re is identi fied. There are mild to modera te degene rative change s in the right knee. There is modera te medial joint space loss. There is mild margin al spurri ng. There is promin ent spurri ng along the tibial tuberc le. Contra latera l knee: There are mild to modera te degene rative change s. IMPRES BERYL: 1. There are mild to modera te degene rative change s in the right knee. Interp reted By: Kervin morley MD Electr on ly Signed By: Kervin morley MD on 024 11:[email or web address] [place] [address] Radiology [place] [address] , [place], [address], 10/12/2023 09:50:11 Result Notes Documentation Provider Name and Address Organization Details Recorded Time Xr, Knee, 4 Or More View : [facility] [place] [address] [place] [address] Patient Name: MARIBEL JACOBSON Patient : 1960 Patient Ordering Provider: Marycruz HEART EXAM DATE: 10/05/2023 EXAM: XR RT KNEE COMPLETE, 4 OR MORE VWS COMPARISON: 11/01/2017 HISTORY: Right knee pain. FINDINGS: No fracture is identified. There are mild to moderate degenerative changes in the right knee. There is moderate medial joint space loss. There is mild marginal spurring. There is prominent spurring along the tibial tubercle. Contralateral knee: There are mild to moderate degenerative changes. IMPRESSION: 1. There are mild to moderate degenerative changes in the right knee. Interpreted By: Khurram Solo MD Mario HEART PA-C [address] [place], [address], [facility] 10/12/2023 09:50:11 Problems Name Problem SNOMED Code Status Onset Date Resolution Date Notes Provider Name and Address Organization Details Recorded Time Leukemia 19129291 Active 016 Yani Boyd [facility] 11/01/2017 15:03:53 Problem Notes Documentation Provider Name and Address Organization Details Recorded Time External Records : [facility] [address] [facility] [address]NJRTLNFAlejandro (Legal name: Maribel Jacobson) (id #[id number], : 1960) [facility] [address] [place] [address] Date: 4RE: Maribel Jacobson, : 1960, PT ID #[id number] Cruz MD, I would like to thank you for referring Maribel Jacobson to our practice for consultation and evaluation. I have enclosed a copy of the office evaluation for your records. Sincerely, Electronically Signed by: Agueda ALMAGUERdewitt general hospitalaf[facility] Reason/Date suture removal 04/26/2023 - 08:20AM - [facility] History of Present IllnessHere for bolster removalMOHS: 04/19/23BCCLeft AntihelixFull Thickness GraftReview of SystemsROS as noted in the HPIPhysical ExamWell healed scar at the site(s) of prior treatment with no evidence of cancer recurrence. Personal history of skin cancer.Procedure DocumentationSuture/Staple removal: Location: Left Antihelix Pt presents for suture removal. The wound area was clean, dry, intact, and healing well with minimal erythema/tenderness and no discharge no warmth no tenderness no discharge. Contact dermatitis was absent. Sutures/tristan were removed without incident. Patient was advised to follow-up for any signs or symptoms of infection.Assessment/Plan1. History of malignant neoplasm of skin- No evidence of recurrence. Discussed risk of recurrence and new skin cancers, so regular self exam and professional skin checks are recommended. Sun protection with broad spectrum SPF 30 sunscreen and broad-brimmed hat is recommended. Sun protection with SPF 30 broad spectrum sunscreen and protective gear discussed.Z85.828: Personal history of other malignant neoplasm of skin 2. ScarL90.5: Scar conditions and fibrosis of skin 3. Removal of suture-Wound care BID x 2 weeks to the [facility] in 4 moZ48.02: Encounter for removal of sutures Return to Office KRISTIN RIOS MD for FOLLOW UP [facility] at [facility] on 06/15/2023 at 09:10 AM GABRIEL DAWN MD for FOLLOW UP [facility] on 08/30/2023 at 08:30 AM Issa Cary [facility] 04/27/2023 12:11:33 Orthopedic Consult Note : [facility] [address] [facility] [address]CNAKRER, Lee L (Legal name: Maribel Jacobson) (id #[id number], : 1960) [facility] [address] [place] [address] Encounter Summary - Progress Note Date Printed: 10/05/2023 Documents sent via fax will include the followingmessage: This fax may contain sensitive and confidential personal health information that is being sent for the sole use of the intended recipient. Unintended recipients are directed to securely destroy any materials received. You are hereby notified that the unauthorized disclosure or other unlawful use of this fax or any personal health information is prohibited. To the extent patient information contained in this fax is subject to 42 CFR Part 2, this regulation prohibits unauthorized disclosure of these records. If you received this fax in error, please visit [email or web address] to notify the sender and confirm that the information will be destroyed. If you do not have internet access, please call to notify the sender and confirm that the information will be destroyed. Thank you for your attention and cooperation. 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 10/05/2023 - 11:00AM - [facility] History of Present Illness10/05/23Mr. Jacobson is a previous patient who returns for evaluation of continued pain to right knee. There is history of treatment with cortisone injections. The previous injection received in 2018 with benefit. He continues to deny pain but is having instability concerns. When he plays golf frequent occurrences of buckling and feeling of weakness, he was able to catch himself and not fall fully. He is taking tramadol and tylenol as needed but not for knee. 11/01/2017 Mr. Jacobson returns today to follow-up on his right hip. Again, he does not have any significant component of groin or thigh pain. He does endorse some buttock and posterior hip pain. He endorses significant radicular symptoms, including a pain that seems to radiate down into the lateral aspect of his leg and foot. However, he denies specific mechanical low back pain. His x-rays do reveal moderate arthritis of the right hip. Iron intra-articular steroid injection did not confer any significant relief. He has not had any formal imaging of his spine. He is not taking regular NSAIDs. Review of Systems Musculoskeletal::right knee pain.. Patient reportscurently smoking. He reports no fever and no night sweats. He reports no chest pain, no palpitations, and no known heart murmur. He reports no excessive bleeding. He reports no runny nose, no sinus pressure, no itching, no hives, and no frequent sneezing. He reports no abdominal pain, no vomiting, normal appetite, no diarrhea, not vomiting blood, no dyspepsia, and no GERD. [id number] 11:10 Ht: 6 ft 3 in Wt: 265 lbs BMI: 33.1 BP: Not Performed Results/InterpretationsNone recorded Physical Exam Physical Examination General: no acute distress, comfortable, overweight BMI Vitals reviewed in chart Vascular: 2+ pulses symmetric. Neurologic: Sensation to light touch intact distally Dermatologic: no signs or symptoms of infection or DVTRash: noneIncisions: none Gait: antalgaicAssistive device: noneSpecific Musculoskeletal Exam RIGHT knee Neutral alignment 0 degrees correctable ROM: RIGHT: 0-138LEFT:Effusion: none Joint line tenderness: medialPes bursa tenderness none Collaterals: stable at 0 and 30 deg Surya: negativeLachman s test: negative Posterior drawer: negative Patellar tracking: normalPatellar grind: normalExtensor mechanism intact, no defectSmall palpable Tapia's cyst Hip flexion/EHL/FHL/TA/GCS: intact BILATERAL hip Negative straight leg raise Normal ROMNo pain with ER/IR of hipXR: Moderate DJD RIGHT kneenarrowing of medial joint space most pronounced on Calhoun view. 1 mm joint space remainingearly sclerosisMedium medial osteophytes No lateral osteophytesmoderate PF disease, small anterior condylar and small retropatellar osteophytesMinimal erosion of lateral facet space on Merchant view, patella tracks normallysmall posterior condylar osteophytesno fx, tumor intraosseous lesion Kellegren-Lamine grade: 3 Procedure DocumentationInjection Joint/Bursa, Major:After discussion of the risks and benefits, the patient consented to proceed with a steroid injection into the right knee. Confirmed that the patient does not have history of prior adverse reactions, active infections, or relevant allergies. There was no effusion, erythema, or warmth, and the skin was clear. The skin was prepped in a sterile fashion. Topical anesthesia was achieved with intradermal injection of .5% Marcaine and 1% Lidocaine. The/Each joint was injected with 2 cc of Triamcinolone Acetonide ([facility] [id number]), 40 mg/ml, and Lidocaine and Marcaine. The injection was completed without complication, and a bandage was applied. The patient tolerated the procedure well and was instructed to avoid strenuous activity for the next 24-48 hours and to use ice, NSAIDs, or Tylenol for pain as needed. The patient will call immediately with any signs of infection or allergic reaction. The patient will return as needed. Assessment and Plan1. Osteoarthritis of knee- CSI. Avoid NSAID due to leuk meds.M17.11: Unilateral primary osteoarthritis, right knee Return to Office Patient will return to the office as needed Patient Medical History: Allergies List Allergies not reviewed (last reviewed 04/26/2023) SULFA (SULFONAMIDE ANTIBIOTICS): Anaphylaxis (Severe) Medications Reviewed Medications NameDate Source allopurinoL 300 mg tabletTAKE ONE TABLET BY MOUTH TWICE A DAY02/14/19 changed KHURRAM SILVER MD haOVSXJnfk73/01/23 entered Yolanda Sinclair Zncdzwn94/01/23 entered Yolanda Zeldaa nquqgsqa45/01/23 [facility] qfuGYRPEF88/23/18 entered Yani Boyd metoprolol yretatan77/23/18 entered Yani Boyd vqkbogurnyzm48/01/23 entered [facility] Singulair 10 mg tabletTake 1 tablet(s) every day by oral route.11/01/17 entered Yani Boyd sodium bicarbonate 650 mg tabletTAKE ONE TABLET BY MOUTH TWICE A DAY02/14/19 changed KHURRAM SILVER MD tamsulosin 0.4 mg capsuleTAKE 1 CAPSULE BY MOUTH DAILY 30 MINUTES AFTER A MEAL THE SAME TIME EVERY DAY07/30/20 renewed KHURRAM SILVER MD traMADoL 50 mg tabletTake 1 tablet(s) every 6 hours by oral route with meal(s).04/23/23 prescribed GABRIEL DAWN MD HvypvhL77/23/18 entered Yani Boyd XyzaL11/01/17 entered Yani Boyd Family HistoryFamily History not reviewed (last reviewed 02/09/2023) Father - No current problems or disability Mother - No current problems or disability Past Medical HistoryPast Medical History not reviewed (last reviewed 02/09/2023) Allergies/Hayfever:Y Arthritis:Y Blood Thinners:Y COPD:Y Cancer:Y-Leukemia 10/2015 Diabetes:Y Heart Conditions:Y-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 Hernia:Y High Cholesterol:Y Hypertension:Y Kidney Stones:Y Sleep Apnea:Y-cpap Vaccine HistoryNone recorded Electronically Signed by: Mario HEART PA-C, PASUP GAYLE [facility] 10/05/2023 17:19:12 Progress Note : [address] [address]YVLCKPH, Lee L (Legal name: Maribel Jacobson) (id #[id number], : 1960) [facility] [address] [place] [address] Date: 04/22/2024RE: Maribel Jacobson, : 1960, PT ID #[id number] Cruz MD, I would like to thank you for referring Maribel Jacobson to our practice for consultation and evaluation. I have enclosed a copy of the office evaluation for your records. 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 LV with DAK 04/26/2023 (FUP with Dr. Dawn).LV with Dr. Rios 02/2023.Review of SystemsROS as noted in the HPIPhysical ExamSkin exam was conducted to include the b/l forearms/hands and was normal with the following exceptions:- Scaly hyperkeratotic plaque with indurated pink base on the L fourth MCP -- r/o KA (A)- Heaped up excoriated papule L dorsal hand -- r/o PN vs SCC (B)- Gritty, pink scaly macules on the R hand- Heaped up excoriated papules on L forearm , L hand , R hand in areas of endorsed pickingProcedure DocumentationBlade Biopsy:Site 1 : L fourth MCP r/o KA (A) Site 2: L dorsal hand r/o PN vs SCC (B) After consent, the site was anesthetized using lidocaine with epinephrine. A biopsy using a blue blade was performed. Hemostasis was obtained. Tissue submitted to pathology. The wound was dressed with petroleum jelly and a bandage. Wound care instructions were given.DAK - Cryo AK:Destruction Premalignant Lesions: Patient verbally agreed to have lesions treated and understands the risk of scarring and dyspigmentation with the procedure. 1 actinic keratoses were treated today with liquid nitrogen. Patient tolerated the procedure well.Assessment/Plan1. Neoplasm of uncertain behavior of skin-Site 1 : L fourth MCP r/o KA (A) Site 2: L dorsal hand r/o PN vs SCC (B) - Bx performed today (see proc note(s) & surgical path order below for further detail, including location(s) & DDX(s))- Wound care instructions reviewed/handout provided- Will call with results & arrange tx as indicated at that timeD48.5: Neoplasm of uncertain behavior of skin SURGICAL PATHOLOGY - Specimen source: SKIN Specimen 1: L fourth MCP r/o KA (A) Specimen 2: L dorsal hand r/o PN vs SCC (B) 2. Actinic keratosis--Precancerous nature discussed-Will TX with LN2 today (see proc note)-FUP if sites persist after TXL57.0: Actinic keratosis 3. Prurigo nodularis-Non stable, chronic.Dorsal hands/forearms.Pt endorses frequent picking.- The etiology of the condition was discussed- Discussed skin's natural defense mechanism to thicken up with chronic rubbing/scratching & importance of breaking the itch-scratch cycle- Rx sent for clobetasol 0.05% topical ointment to apply to AA on body BID for up to 2 weeks then limit to weekends only.- Avoid scratching AAs as this can attribute to further skin thickening. Limit application of topical steroids to 2 weeks.terminologist application of topical steroids can cause thinning of the skin.Rec to not pick at areas Recheck in 6 weeks. Consider ILK vs. shave removal.L28.1: Prurigo nodularis clobetasol 0.05 % topical ointment - APPLY A THIN LAYER TO THE AFFECTED AREA(S) BY TOPICAL ROUTE 2 TIMES PER DAY FOR 2 WEEKS Qty: (1) 30 gram tube Refills: 0 [facility] Return to Office KRISTIN RIOS MD for PROVIDER APPROVED DAK at [facility] on 06/03/2024 at 01:40 PM GAYLE Goyal - [facility] 04/23/2024 13:37:32 Procedures Surgical History Date Name Laterality Status Provider Name and Address Organization Details Recorded Time 08/30/19 25 Injection Joint/Bursa, Major completed Tea Messer [facility] 08/27/2024 16:07:00 04/22/19 25 DAK - Cryo AK completed Mercedes Boone [facility] 04/22/2024 14:10:42 04/22/19 25 Blade Biopsy completed KRISTIN RIOS MD [address] [place], [address], [facility] 04/22/2024 15:54:21 10/05/19 24 Injection Joint/Bursa, Major completed Mario HEART PA-C [address] [place], [address], [facility] 10/05/2023 11:48:13 04/26/19 24 Suture/Staple removal completed Virgen Sanches [facility] 04/26/2023 09:14:16 03/09/20 23 Suture/Staple removal completed Rosamaria Holt [facility] 03/09/2023 10:58:10 03/02/20 23 DAK - Biopsy, Tangential completed Rosamaria Holt [facility] 03/02/2023 14:28:23 02/10/20 23 Blade Biopsy completed Alana Chang [facility] 02/09/2023 10:07:31 11/02/19 18 Injection Joint/Bursa, Major completed Mario HEART PA-C [address] [place], [address], [facility] 11/01/2017 15:23:57 03/20/19 18 Interpretation completed CARMINA AUGUSTIN PA-C [address] [place], [address], [facility] 03/20/2017 10:21:00 12/21/19 17 POSTERIOR LUMBAR INTERBODY FUSION, ADDITIONAL INTERSPACE (SURG) completed Triny Bravo [facility] 01/01/2017 09:55:49 Cardiac Surgery completed Yani Boyd [facility] 11/01/2017 14:59:18 Eye Surgery completed Yani [facility] 11/01/2017 14:59:41 Removal of tonsils completed Rodney mane [facility] 11/01/2017 14:59:55 Nl removal calculus completed Yani [facility] 11/01/2017 15:00:29 POSTERIOR LUMBAR INTERBODY FUSION, ADDITIONAL INTERSPACE (SURG) completed Triny Lawrence [facility] 01/23/2017 09:14:40 POSTERIOR LUMBAR INTERBODY FUSION, ADDITIONAL INTERSPACE (SURG) completed Tea Messer [facility] 01/24/2017 10:30:56 Imaging Results None recorded. Procedure Notes None recorded. Medical Equipment None Reported. Allergies Allergen ID Allergen Name Allergen Category Reaction Reaction Severity Criticality Documentation Date Start Date Code Code System Note Provider Name and Address Organization Details Recorded Time 620105 Substance with sulfonami de structure and antibacte rial mechanism of action (substanc e) medicatio n anaphylax is severe Not available 11/30/2016 61854 8003 SNOMED [facility]alee [facility] 7 14:59:23 Medications Name Sig Start Date Stop Date Status Note LastModified by Organization Details LastModified Time Prescriptio n - Renewal 02/09 completed Not Available Not Available Not Available Singulair 10 mg tablet Take 1 tablet every day by oral route. active Not Available Not Available No t Available Percocet 7.5 mg-325 mg tablet Take 1 tablet 4 times a day by oral route as needed. 11/01 completed Not Available Not Available Not Available doxycycline hyclate 100 mg capsule Take 1 capsule twice a day by oral route with meal(s) for 5 days. 10/04 completed Not Available Not Available Not Available tramadol 50 mg tablet Take 1 tablet every 6 hours by oral route with meal(s). 2023 active Not Available Not Available Not Avai lable tamsulosin 0.4 mg capsule TAKE 1 CAPSULE BY MOUTH DAILY 30 MINUTES AFTER A MEAL THE SAME TIME EVERY DAY 2020 active Not Available Not Available Not Avai lable Valium 5 mg tablet Take 1 tablet twice a day by oral route as needed. 11/01 completed Not Available Not Available Not Available sodium bicarbonate 650 mg tablet TAKE ONE TABLET BY MOUTH TWICE A DAY 2018 active Not Available Not Available Not Avai lable allopurinol 300 mg tablet TAKE ONE TABLET BY MOUTH TWICE A DAY 2018 active Not Available Not Available Not Avai lable clobetasol 0.05 % topical ointment APPLY A THIN LAYER TO THE AFFECTED AREA(S) BY TOPICAL ROUTE 2 TIMES PER DAY FOR 2 WEEKS 2024 active Not Available Not Available Not Avai lable Viagra 100 mg tablet TAKE 1/2 TO 1 TABLET BY MOUTH DAILY NEEDED DIRECTED Rfs rem BEFORE 03/01/16 active Not Available Not Available No t Available Percocet 5 mg-325 mg tablet Take 1 tablet every 6 hours by oral route. 11/01 completed Not Available Not Available Not Available sildenafil (pulmonary hypertensio n) 20 mg tablet Take 1 tablet as needed by oral route. 11/01 completed Not Available Not Available Not Available metoprolol tartrate active Not Available Not Available Not Available amlodipine active Not Available Not Av ailable Not Available losartan active Not Available Not Avai lable Not Available Tylenol active Not Available Not Avail able Not Available metformin active Not Available Not Stephanie ilable Not Available Advair Diskus 02/09 completed Not Available Not Available Not Available rosuvastati n active Not Available Not Available Not Available Xyzal active Not Available Not Availa ble Not Available Bosulif active Not Available Not Avail able Not Available Vitals Date Recorded Body height Body temperature Systolic And Diastolic Provider Name and Address Organization Details Last Updated DateTime 07/15/2024 190.5 cm 97.7 [degF] 157/74 mm[Hg] Jojo Guardado [facility] 07/15/2024 13:04:47 Date Recorded Body temperature Systolic And Diastolic Provider Name and Address Organization Details Last Updated DateTime 07/15/2024 97.7 [degF] 155/82 mm[Hg] Colette Ortiz [facility] 07/15/2024 15:24:19 Date Recorded Body height Body mass index (BMI) Body weight Provider Name and Address Organization Details Last Updated DateTime 08/29/2024 190.5 cm 33.1 kg/m2 601543.98 g Bradley Silverman [facility] 08/29/2024 10:11:26 Date Recorded Body height Body mass index (BMI) Body weight Provider Name and Address Organization Details Last Updated DateTime 10/05/2023 190.5 cm 33.1 kg/m2 719219.98 g Tea Messer [facility] 10/05/2023 11:10:18 Social History Question Answer Notes LastModified by Organizat ion Details LastModified Time Tobacco Smoking Status Current Every Day Smoker Mario HEART PA-C [address] [place], [address], [facility] 08/04/2016 11:40:24 Accident Related Injury No [email or web address] Information not available 08/04/2016 What Is Your Level Of Caffeine Consumption? Moderate [email or web address] Information not available 08/04/2016 How Much Tobacco Do You Chew? None [email or web address] Information not available 08/04/2016 Which Of Your Hands Is Dominant? Right [email or web address] Information not available 08/04/2016 Sunscreen Use? No Informatio n not available 02/09/2023 Tanning Bed Use No Informati on not available 02/09/2023 Have You Been Treated For This Problem Before? No [email or web address] Information not available 08/04/2016 Will This Be Filed As Workers' Compensation? No Information not available 08/04/2016 Marital Status [email or web address] Informat ion not available 08/04/2016 What Was The Date Of Your Most Recent Tobacco Screening? 11/01/2017 Information not available 04/29/2019 How Much Tobacco Do You Smoke? 0.25 PPD [email or web address] Information not available 08/29/2024 How Many Years Have You Smoked Tobacco? 40 [email or web address] Information not available 11/01/2017 Work Related Injury? No [email or web address] Information not available 08/04/2016 Sex: Male Functional Status Question Answer Note LastModified by Organizat ion Details LastModified Time Do you use any illicit or recreational drugs? No [email or web address] Information not available 08/04/2016 What is your level of alcohol consumption? Occasional [email or web address] Information not available 08/04/2016 Are you currently employed? No [email or web address] Information not available 08/04/2016 What is your occupation? Retired [email or web address] Information not available 08/04/2016 Mental Status None recorded. Family History Relationship Description Onset Age of this Age Resolved Age Notes LastModified by Organization Details LastModified Time Father No current problems or disability [email or web address] Not available 10/11 14:57:57 Mother No current problems or disability Not available 10/11 14:57:57 Medical History Condition Response Allergies/Hayfever Y Anxiety/Depression N Other N Gout N Thyroid Disease N Kidney Stones Y Heart Conditions Y Hernia Y Migraines N COPD Y Glaucoma N Pneumonia N Skin Problems N Immune System Disorder N Anesthesia Complications N Heart Attack (MT) N Mental Illness N Neurological Problems N Diabetes Y Rheumatic Fever N Bleeding Disorder N Arthritis Y Seizures/Epilepsy N Blood Clot N Tuberculosis N Genetic Disorder N AIDS/HIV N Cancer Y Stroke N Asthma N Blood Thinners Y Basal Cell Carcinoma Y Alcohol Overuse/Alcohol Abuse N Sleep Apnea Y High Cholesterol Y Liver Disease N Included as Review of Systems N Hypertension Y Osteoporosis N Kidney Disease N Past Encounters Encounter ID Performer Location Encounter Start Date Encounter Closed Date Diagnosis/Indication Diagnosis SNOMED-CT Code Diagnosis ICD10 Code Diagnosis Note [id number] C ADRIANE HEART PA-C [facility] [address] [place] [address] 08/04/2016 10:50:54 08/04/2016 13:19:53 Pain of hip region 53284362 M25.551 Osteoarthritis of hip 23 1344783 M16.11 CSI for diagnostic purposes. [id number] DESTINEE Larson MD [facility] [address] [place] [address] 11/30/2016 14:34:46 11/30/2016 15:59:17 Lumbar radiculopathy 124004434 M54.16 [id number] АННА GARCIA MD [facility] [address] [place] [address] 12/12/2016 08:57:43 12/12/2016 10:14:34 Spondylolisthesis, grade 1 91943571 M43.10 [id number] АННА GARCIA MD [facility] [address] [place] [address] 01/05/2017 10:29:48 01/05/2017 10:32:39 [id number] АНАН GARCIA MD [facility] [address] [place] [address] 01/23/2017 09:07:19 01/23/2017 09:49:14 Spondylolisthesis, grade 1 66676505 M43.10 [id number] CARMINA AUGUSTIN PA-C [facility] [address] [place] [address] 03/20/2017 09:50:22 03/20/2017 10:40:09 Postoperative care 952013804 Z48.89 56M s/p L4-S1 lamiectomy and posteriola teral arthrodesi s by Dr. Garcia on 12/20/16. Pt is 3 months post op and doing as well as expected. Xrays looks great. He is having no pain at this time. Advised to start weaning out of the LSO 1hr/day over the next 4-6 weeks with gradual progressio n of his activity tolerance. Advised to hold off on free weight lifting for exercise, recommende pretty mercado to walk, he may add planks/pus h ups at this time if he would like. He is cleared to play golf when it warms up outside, advised to start with smaller clubs and easier swing to see how his back will respond. Will provide documentat ion the patient is requesting for his employer. We will have him follow up as needed moving forward. Pt agrees with this plan. [id number] C ADRIANE HEART PA-C [facility] [address] [place] [address] 11/01/2017 14:26:37 11/01/2017 15:41:50 Osteoarthritis of knee 139447888 M17.11 CSI. Avoid NSAID due to leuk meds. [id number] KRISTIN RIOS MD [place] [address] [place] [address] 02/09/2023 08:50:29 02/09/2023 10:37:50 Neoplasm of uncertain behavior of skin 73917813 D48.5 - Bx performed today (see proc note(s) & surgical path order below for further detail, including location(s ) & DDX(s))- Wound care instructio ns reviewed/h andout provided- Will call with results & arrange tx as indicated at that time Pt denies fevers, chills, unintentio nal weight loss [id number] [place] [address] 03/02/2023 07:31:07 03/20/2023 03:48:39 Neoplasm of uncertain behavior of skin 06048021 D48.5 [id number] GABRIEL DAWN MD [place] [address] 03/09/2023 08:53:24 03/20/2023 05:06:28 Postoperative visit 496263758 Z09 Scar 781040916 L90.5 History of squamous cell carcinoma of skin 412873217 Z85.828 No evidence of recurrence . Discussed risk of recurrence and new skin cancers, so regular self exam and profession al skin checks are recommende d. Sun protection with broad spectrum SPF 30 sunscreen and broad-brim med hat is recommende d. Sun protection with SPF 30 broad spectrum sunscreen and protective gear discussed. [id number] GABRIEL DAWN MD [place] [address] 04/19/2023 07:38:56 04/27/2023 09:32:00 [id number] GABRIEL DAWN MD [place] [address] 04/26/2023 08:10:47 05/16/2023 13:57:52 History of malignant neoplasm of skin 920101552 Z85.828 No evidence of recurrence . Discussed risk of recurrence and new skin cancers, so regular self exam and profession al skin checks are recommende d. Sun protection with broad spectrum SPF 30 sunscreen and broad-brim med hat is recommende d. Sun protection with SPF 30 broad spectrum sunscreen and protective gear discussed. Scar 876100720 L90.5 Removal of suture 485835 01 Z48.02 Wound care BID x 2 weeks to the [facility] in 4 mo [id number] Mario HEART PA-C [facility] [address] [place] [address] 10/05/2023 10:46:23 10/05/2023 11:59:32 Osteoarthritis of knee 984778523 M17.11 CSI. Avoid NSAID due to leuk meds. [id number] KRISTIN RIOS MD [address] [place] [address] 04/22/2024 13:37:50 04/22/2024 14:36:03 Neoplasm of uncertain behavior of skin 76519362 D48.5 Site 1 : L fourth MCP r/o KA (A) Site 2: L dorsal hand r/o PN vs SCC (B) - Bx performed today (see proc note(s) & surgical path order below for further detail, including location(s ) & DDX(s))- Wound care instructio ns reviewed/h andout provided- Will call with results & arrange tx as indicated at that time Actinic keratosis 007 L57.0 -Precancer ous nature discussed- Will TX with LN2 today (see proc note)-FUP if sites persist after TX 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 Limit applicatio n of topical steroids to 2 weeks.MCC applicatio n of topical steroids can cause thinning of the skin.Rec to not pick at areas Recheck in 6 weeks. Consider ILK vs. shave removal. [id number] GABRIEL DAWN MD [facility] [address] [place] [address] 07/15/2024 12:40:38 07/23/2024 13:08:24 [id number] Mario HEART PA-C [facility] [address] [place] [address] 08/29/2024 10:07:16 08/29/2024 10:22:27 Osteoarthritis of right knee joint 1604420033 82163 M17.11 CSI. Avoid NSAID due to leuk meds. Health Concerns Section Related Observation LastModified by Organization Detai ls LastModified Time None Recorded Concern Status LastModified by Organization Details LastModified Time None Recorded Advance Directives Directive None Recorded Payers Insurance Date Sequence Insurance Name Policy Number Policy Stephens Covered Member ID Stephens Member ID Guarantor Name 08/28/2024 1 [place] [id number] 1 Maribel Jacobson [id number] Maribel Jacobson 09/02/2024 1 [facility] (MEDICARE REPLACEMENT/A DVANTAGE - PPO) [id number] Maribel Jacobson [id number] Maribel Jacobson Notes Date Note Type Note Provider Name and Address Organization Details Recorded Time 04/26/2023 text/html Here for mikal removalMOHS: 04/19/23BCCLeft AntihelixFull Thickness Graft Virgen Sanches [facility] 04/26/2023 09:15:08 10/05/2023 text/html 10/05/23MrShelley mclean is a previous patient who returns for evaluation of continued pain to right knee. There is history of treatment with cortisone injections. The previous injection received in 2018 with benefit. He continues to deny pain but is having instability concerns. When he plays golf frequent occurrences of buckling and feeling of weakness, he was able to catch himself and not fall fully. He is taking tramadol and tylenol as needed but not for knee. 11/01/2017 Mr. Jacobson returns today to follow-up on his right hip. Again, he does not have any significant component of groin or thigh pain. He does endorse some buttock and posterior hip pain. He endorses significant radicular symptoms, including a pain that seems to radiate down into the lateral aspect of his leg and foot. However, he denies specific mechanical low back pain. His x-rays do reveal moderate arthritis of the right hip. Iron intra-articular steroid injection did not confer any significant relief. He has not had any formal imaging of his spine. He is not taking regular NSAIDs. 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 LV with DAK 04/26/2023 (FUP with Dr. Dawn).LV with Dr. Rios 02/2023. KRISTIN RIOS MD [address] [place], [address], [facility] 04/22/2024 15:55:46 07/15/2024 text/html Patient presents for Mohs to treat a SCC on the Left 4th MCP & a SCC on the Left Dorsal Hand. PREOP CHECKLIST1. Pacemaker or Defibrillator? NO2. Artificial heart valve or joints? NO3. Pt currently on antibiotic? NONotes:4. History of bleeding, infection or complications with other surgeries? NO5. Med history, medications and allergies reviewed? YES6. Has pt taken Immunosuppressive meds (imuran, cyclosporine, mycophenolate, chemo etc.?, or steroids in last 2 weeks? YES7. Prearranged Closure? NONotes:8. Have a ride home? YESNotes: Not Available [facility] 07/17/2024 11:11:52 08/29/2024 text/html [id number] Knee CSI 10/05/23MrShelley Jacobson is a previous patient who returns for evaluation of continued pain to right knee. There is history of treatment with cortisone injections. The previous injection received in 2018 with benefit. He continues to deny pain but is having instability concerns. When he plays golf frequent occurrences of buckling and feeling of weakness, he was able to catch himself and not fall fully. He is taking tramadol and tylenol as needed but not for knee. 11/01/2017Mr. Jacobson returns today to follow-up on his right hip. Again, he does not have any significant component of groin or thigh pain. He does endorse some buttock and posterior hip pain. He endorses significant radicular symptoms, including a pain that seems to radiate down into the lateral aspect of his leg and foot. However, he denies specific mechanical low back pain. His x-rays do reveal moderate arthritis of the right hip. Iron intra-articular steroid injection did not confer any significant relief. He has not had any formal imaging of his spine. He is not taking regular NSAIDs. Mario HEART PA-C [address] [place], [address], [facility] 08/29/2024 10:22:11
[2024-09-24 12:17] LABS: Hematocrit 38.2 % (42.0-52.0); Hemoglobin 12.2 g/dL (14.1-18.0); Immature Granulocytes % 0.3 %; Mean Corpuscular HGB Conc 31.9 g/dL (31.8-35.4); Mean Corpuscular Hemoglobin 28.7 pg (27.0-31.2); Mean Corpuscular Volume 89.9 fl (80-94); Nucleated Red Blood Cells % 0 %; Platelet Count 170 K/mm3 (142-424); Red Blood Count 4.25 M/mm3 (4.60-6.20); Red Cell Distribution Width-SD 50.1 fL; White Blood Count 11.1 K/mm3 (4.8-10.8)
[2024-09-24 12:39] LABS: Alanine Aminotransferase 18 U/L (12-78); Albumin Level 4.5 g/dl (3.5-5.0); Albumin/Globulin Ratio 1.4 (1.1-1.8); Alkaline Phosphatase 111 U/L (38-126); Anion Gap 18.5 mEq/L (5-15); Aspartate Amino Transferase 18 U/L (17-59); Bilirubin,Total 0.7 mg/dl (0.2-1.3); Blood Urea Nitrogen 12 mg/dl (9-20); Calcium 9.3 mg/dl (8.4-10.2); Carbon Dioxide 27 mmol/L (22.0-30.0); Chloride 100 mmol/L (98-107); Creatinine,Serum 1.30 mg/dl (0.66-1.25); Estimated Glomerular Filt Rate 55 ml/min (>60); GFR (African American) 67 ML/MIN (>60); Globulin 3.2 g/dL (1.3-3.2); Glucose 100 mg/dl (74-100); Potassium 4.5 mmoL/L (3.5-5.1); Sodium 141 mmol/L (136-145); Total Protein,Serum 7.7 g/dl (6.3-8.2)
[2024-10-05 10:38] LABS: e13a2 (b2a2) transcript <0.0032; e14a2 (b3a2) transcript <0.0032
[2024-10-05 10:39] LABS: PDF: SCANNED IMAGE
== END 2024-09-24 23:59 | disposition home or self-care (01) ==
LOC: LAB 11:36
PROVIDERS: PCP Internal Medicine; Visit Provider Internal Medicine Medical Oncology
DX: C92.10 Chronic myeloid leukemia, BCR/ABL-positive, not having achieved remission (principal)
CPT/HCPCS: 36415; 80053; 81206; 85025

== ENCOUNTER 2025-02-04 10:00 | Outpatient (RCR) | payer MEDICARE, SELFPAY | END 2025-02-04 23:59 | disposition home or self-care (01) | LOC: PT 10:00 | PROVIDERS: PCP Internal Medicine; Visit Provider Orthopaedic Surgery | DX: Z47.89 Encounter for other orthopedic aftercare (principal); Z96.659 Presence of unspecified artificial knee joint | CPT/HCPCS: 97016; 97110; 97140; 97162 ==

== ENCOUNTER 2025-02-18 09:58 | Outpatient (CLI) | payer MEDICARE, SELFPAY ==
--- NOTE | 2025-02-18 10:00 | US_ITS ---
FINAL REPORT CLINICAL HISTORY: Urinary retention, incontinence, dribbling FINDINGS: Limited sonographic images of the urinary bladder were obtained. Bladder volume is 21 mL. Postvoid volume is 12 mL. There is some debris within a decompressed bladder. The prostate measures 5.5 x 5.0 cm. IMPRESSION: Mostly contracted, poorly visualized bladder which may have some internal debris. Reviewed, Interpreted and Dictated by Wing Davila MD Transcribed by Chika Hernadez Authenticated and [facility]
[2025-02-18 13:54] LABS: Hematocrit 31.4 % (42.0-52.0); Hemoglobin 10.1 g/dL (14.1-18.0); Immature Granulocytes % 0.5 %; Mean Corpuscular HGB Conc 32.2 g/dL (31.8-35.4); Mean Corpuscular Hemoglobin 29.1 pg (27.0-31.2); Mean Corpuscular Volume 90.5 fl (80-94); Nucleated Red Blood Cells % 0 %; Platelet Count 335 K/mm3 (142-424); Red Blood Count 3.47 M/mm3 (4.60-6.20); Red Cell Distribution Width-SD 47.4 fL; White Blood Count 14.9 K/mm3 (4.8-10.8)
[2025-02-18 15:06] LABS: Blood Urea Nitrogen 21 mg/dl (9-20); Chloride 99 mmol/L (98-107); Creatinine,Serum 1.60 mg/dl (0.66-1.25); Estimated Glomerular Filt Rate 43 ml/min (>60); GFR (African American) 53 ML/MIN (>60)
[2025-02-18 15:18] LABS: Anion Gap 22.6 mEq/L (5-15); Calcium 9.2 mg/dl (8.4-10.2); Carbon Dioxide 23 mmol/L (22.0-30.0); Glucose 130 mg/dl (74-100); Potassium 4.6 mmoL/L (3.5-5.1); Sodium 140 mmol/L (136-145)
[2025-02-18 18:20] LABS: Hemoglobin A1C 5.7 % (4.0-6.0)
== END 2025-02-18 23:59 | disposition home or self-care (01) ==
LOC: RAD 09:59
PROVIDERS: PCP Internal Medicine; Visit Provider Internal Medicine
DX: C92.10 Chronic myeloid leukemia, BCR/ABL-positive, not having achieved remission (principal); E11.42 Type 2 diabetes mellitus with diabetic polyneuropathy; E11.59 Type 2 diabetes mellitus with other circulatory complications; N39.43 Post-void dribbling; R33.9 Retention of urine, unspecified; R93.41 Abnormal radiologic findings on diagnostic imaging of renal pelvis, ureter, or bladder
CPT/HCPCS: 76857; 80048; 83036; 85025; 87086; 87088; 87186

== ENCOUNTER 2025-03-11 15:00 | Outpatient (RCR) | payer MEDICARE, SELFPAY | END 2025-03-11 23:59 | disposition home or self-care (01) | LOC: PT 15:00 | PROVIDERS: PCP Internal Medicine; Visit Provider Orthopaedic Surgery | DX: Z47.89 Encounter for other orthopedic aftercare (principal); Z96.651 Presence of right artificial knee joint | CPT/HCPCS: 97016; 97110; 97140; 97530 ==